=== PATIENT | female | born 1945 | race Caucasian/White ===

== ENCOUNTER 2019-08-07 14:00 | Outpatient (CLI) | payer OTHER, SELFPAY ==
--- NOTE | ~2019-08-07 | DEXA_ITS ---
BMD(1) Young-Adult(2) Region (g/cm2) T-score WHO Classification L1 0.924 -1.8 Osteopenia L2 1.033 -1.5 Osteopenia L3 1.194 -0.2 Normal L4 1.418 1.6 Normal L1-L4 1.177 -0.1 Normal L2-L4 1.242 0.2 Normal Trend: L2-L4 Change vs Change vs Measured Age BMD(1) Baseline Previous Date ([age]) (g/cm2) (%) (%) 08/07/2019 [age] 1.242 19.5* 6.0* 12[age]11/2016 [age] 1.172 12.8* 12.2* 06[age]27/2012 66.6 1.045 0.6 0.6 04[birth year]15/2010 [age] 1.039 baseline - * - Indicates significant change based on 95% confidence interval. 1 - Statistically 68% of repeat scans fall within 1SD (+- 0.010 g/cm2 for AP Spine L2-L4) 2 - [place] (Combined NHANES (ages 20-30) / [place] (ages 20-40)) AP Spine Reference Population (v112) 11 - World Health Organization - Definition of Osteoporosis and Osteopenia for Women: Normal = T-score at or above -1.0 SD; Osteopenia = T-score between -1.0 and -2.5 SD; Osteoporosis = T-score at or below -2.5 SD; (WHO definitions only apply when a young healthy Women reference database is used to determine T-scores.) Printed: 08/07/2019 2:52:59 PM (13.60)76:3.00:50.00:12.0 0.00:10.56 0.60x1.05 25.5:%Fat=42.5% 0.00:0.00 0.00:0.00 Filename: [id number] Scan Mode: Standard;OneScan 37.0 [employer] [id number] BMD(1) Young-Adult(2,7) Region (g/cm2) T-score WHO Classification Neck Left 0.863 -1.3 Osteopenia Right 0.927 -0.8 Normal Mean 0.895 -1.0 Normal Difference 0.064 0.5 - Total Left 0.863 -1.1 Osteopenia Right 0.825 -1.5 Osteopenia Mean 0.844 -1.3 Osteopenia Difference 0.038 -0.3 - Hip Sprague Length Comparison (mm) JAQUELINE chart results unavailable Trend: Total Mean Change vs Change vs Measured Age BMD(1) Baseline Previous Date ([age]) (g/cm2) (%) (%) 08[birth year]07/2019 73.7 0.844 8.8* 9.8* [birth year]27/2012 66.6 0.769 -0.9 -0.9 04/15/2010 64.4 0.776 baseline - * - Indicates significant change based on 95% confidence interval. 1 - Statistically 68% of repeat scans fall within 1SD (+- 0.010 g/cm2 for DualFemur Total) 2 - [place] (Combined NHANES (ages 20-30) / [place] (ages 20-40)) Femur Reference Population (v112) 7 - DualFemur Total T-score difference is 0.3. Asymmetry is None. 11 - World Health Organization - Definition of Osteoporosis and Osteopenia for Women: Normal = T-score at or above -1.0 SD; Osteopenia = T-score between -1.0 and -2.5 SD; Osteoporosis = T-score at or below -2.5 SD; (WHO definitions only apply when a young healthy Women reference database is used to determine T-scores.) Printed: 08/07/2019 2:53:00 PM (13.60); Filename: [id number]; Right Femur; 19.7:%Fat=42.5%; Neck Angle (deg)= 59; Scan Mode: Standard 37.0 uGy; Left Femur; 20.0:%Fat=35.0%; Neck Angle (deg)= 60; Scan Mode: Standard 37.0 uGy [facility] [id number] Dear Kristie Ashley, Your patient Margot Gipson completed a BMD test on 08/07/2019 using the [facility] DXA System (analysis version: 13.60) manufactured by [employer]. The following summarizes the results of our evaluation. PATIENT BIOGRAPHICAL: Name: Margot Gipson Date: 1945 Height: 69.0 in.
--- NOTE | ~2019-08-07 | MM_ITS ---
EXAMINATION: MM screening [facility] BI w naomy HISTORY: Screening mammogram TECHNIQUE: Craniocaudal and mediolateral oblique 3-D tomosynthesis images were obtained and synthetic 2-D images were generated. CAD analysis was submitted and interpreted. COMPARISON: 07/25/2018, 12/10/2016, 06/22/2012 BREAST PARENCHYMAL COMPOSITION: The breasts are heterogeneously dense, which may obscure small masses . FINDINGS: There is no evidence of suspicious mass, calcification, or architectural distortion to sugg est malignancy in either breast. There has been no suspicious interval change. IMPRESSION: 1. No mammographic evidence of malignancy. 2. Recommend routine screening mammography in one year. BI-RADS Category 1: Negative Reviewed, dictated and finalized at location A.
== END 2019-08-07 14:01 | disposition home or self-care (01) ==
LOC: CHSIMG 14:01
PROVIDERS: PCP Internal Medicine; Visit Provider Nurse Practitioner Family
DX: Z12.31 Encounter for screening mammogram for malignant neoplasm of breast (principal); M85.80 Other specified disorders of bone density and structure, unspecified site; Z78.0 Asymptomatic menopausal state
CPT/HCPCS: 77063; 77067; 77080

== ENCOUNTER 2020-02-01 14:34 | Emergency (ER) | payer MEDICARE, SELFPAY ==
--- NOTE | ~2020-02-01 | CT_ITS ---
EXAMINATION: CT abdomen pelvis w con DATE: 02/01/2020 16:46 INDICATION: Low abdominal pain. TECHNIQUE: Computed tomography (CT) of the abdomen and pelvis was performed with 100 mL Omnipaque 350 intravenous contrast. Automated exposure control and iterative reconstruction technique were employe d. The dose-length product was 985.57 mGy-cm. COMPARISON: Chest CT 07/25/2018 FINDINGS: The visualized portions of the lung bases demonstrate mild atelectasis. No pleural effusion . The heart size is normal. There are coronary artery calcifications. No pericardial effusion. There is a moderate-sized sliding hiatal hernia. The liver and gallbladder are normal. Calcifications in th e spleen are consistent with old granulomatous disease. The pancreas and left adrenal gland are beto l. There is a 10 mm mass in right adrenal gland without change in size, consistent with an adenoma. T he kidneys are normal. There are scattered diverticula in the colon. The appendix is dilated to 12 mm with irregularity of the inferior wall, consistent with appendicitis. There is gas in the lumen of t he appendix. There is a small volume of ascites and free gas in the pelvis. There is wall thickening of the terminal ileum, consistent with secondary inflammation. There are no pathologically enlarged l ymph nodes. There is a right femoral hernia containing fat and ascites. There is severe thoracic spon dylosis and moderate lumbar spondylosis. IMPRESSION: 1. Ruptured acute appendicitis. 2. Moderate-sized sliding hiatal hernia. 3. Right femoral hernia containing fat and ascites. Reviewed, dictated and finalized at location A.
[2020-02-01 15:00] VITALS: BP 128/74; PULSE 78; RESP 20; TEMP 37; O2SAT 96
--- NOTE | 2020-02-01 15:22 | ECG_ITS ---
Measurements Intervals [place] Rate: 73 P: 66 MD: 164 QRS: 16 QRSD: 101 T: 36 QT: 397 QTc: 439 Interpretive Statements SINUS RHYTHM INCOMPLETE RIGHT BUNDLE BRANCH BLOCK BORDERLINE ST-T WAVE ABNORMALITY- ANTEROLAT/HIGH LAT LEADS BORDERLINE ECG Electronically Signed On 02-01-2020 16:38:28 CDT by Jeff Zelaya D.O.
[2020-02-01] MEDS: SODIUM CHLORIDE 0.9% IV 1,000 ML 999 ML IV CONT (15:35)
[2020-02-01] MEDS: KETOROLAC 30 MG/ML VIAL (*BKC) IV PUSH (15:37)
[2020-02-01 15:38] LABS: Basophils Absolute Auto 0.02 K/mm3 (0.00-0.10); Basophils Percent Auto 0.1 % (0.0-1.0); Hematocrit 37.2 % (35.0-42.0); Hemoglobin 12.4 g/dL (11.7-13.8); Immature Granulocyte Absolute 0.17 K/mm3 (0.00-0.00); Immature Granulocyte Percent A 1.1 % (0.0-0.0); Lymphocytes Absolute Auto 1.35 K/mm3 (1.10-4.50); Lymphocytes Percent Auto 8.9 % (18.0-42.0); Mean Corpuscular HGB Conc 33.3 g/dL (32.0-36.0); Mean Corpuscular Hemoglobin 32.5 pg (27.0-31.0); Mean Corpuscular Volume 97.4 fL (78.0-102.0); Mean Platelet Volume 10.9 fl (9.2-11.8); Monocytes Absolute Auto 0.64 K/mm3 (0.10-0.90); Monocytes Percent Auto 4.2 % (2.0-11.0); Neutrophils Absolute Auto 12.9 K/mm3 (1.7-7.2); Neutrophils Percent Auto 85.7 % (50.0-70.0); Platelet Count Result 205 K/mm3 (150-420); Red Blood Count 3.82 M/mm3 (4.20-5.40); White Blood Count 15.1 K/mm3 (4.8-10.8)
[2020-02-01] MEDS: ONDANSETRON INJ 4 MG/2 ML VIAL IV PUSH (15:38)
[2020-02-01 15:57] LABS: Alkaline Phosphatase 96 U/L (46-116); Anion Gap 7 mmol/L (8-16); Aspartate Amino Transferase 10 U/L (15-37); Bilirubin,Total 3.4 mg/dL (0.00-1.00); Blood Urea Nitrogen 11 mg/dL (7-18); Calcium 8.9 mg/dL (8.5-10.1); Carbon Dioxide 28 mmol/L (21-32); Chloride 100 mmol/L (98-108); Estimated CRCL calculation 47 ml/min; Estimated Glomerular Filt Rate > 60; Glucose 136 mg/dL (70-99); Lipase 34 U/L (73-393); Osmolality Calculated 281 mOsm/kg (285-295); Potassium 3.6 mmol/L (3.5-5.1); Sodium 135 mmol/L (136-145)
[2020-02-01 15:58] LABS: Alanine Aminotransferase < 6 U/L (14-59); Troponin I < 0.02 ng/mL (0.00-0.056)
[2020-02-01 15:59] LABS: Lactic Acid Reflex 1.8 mmol/L (0.4-2.0)
[2020-02-01 16:55] LABS: Add Urine Microscopic? YES; Appearance Urine Clear (Clear); Bilirubin Urine Negative (Negative); Blood Urine Negative (Negative); Color Urine Amber (Yellow); Glucose Urine UA Negative (Negative); Ketones Urine Trace (Negative); Leukocyte Esterase Ur Negative LEU/UL (Negative); Nitrate Urine Positive (Negative); Protein Urine 1+ (Negative); Specific Grav Ur 1.025 (1.010-1.020)
[2020-02-01 17:00] LABS: Bacteria Urine 4+ /hpf; RBC Urine 0-2 /hpf (0-2); Squamous Epithelial Cell Urine Few /hpf (Few); WBC Urine 0-3 /hpf (0-3)
--- NOTE | 2020-02-01 17:09 | ED.ABDPAIN ---
HPI - Abdominal Pain General Chief Complaint: Abdominal Pain Stated Complaint: Abdomen Pian Source: patient and family History of Present Illness HPI narrative: this is a 74-year-old female that presents to the emergency department with a 2 day history of abdominal pain initially she described it is diffuse currently localized to her right lower quadrant with no flank pain, no fever or chills. Patient has been having pain for the last 2 days with episodes of constipation, there is currently nausea with no vomiting patient is afebrile. Patient has a past medical history of hypertension, hypothyroidism/depression. MD elicited complaint: abdominal pain Pertinent past history: none Onset (ago): day(s) Pain Consistency: constant Location: RLQ Severity: severe Quality: sharp Radiation: RLQ Migration to: periumbilical Exacerbating factors: bowel movement and movement Relieving factors: nothing Associated symptoms: nausea and constipation Related Data Home Medications Medication Instructions Recorded Confirmed atenolol 25 mg PO HS 02/01/20 02/01/20 cyanocobalamin (vitamin B-12) 1,000 mcg SUBCUT MONTHLY 02/01/20 02/01/20 ferrous gluconate 324 mg PO DAILY 02/01/20 02/01/20 levothyroxine 100 mcg PO DAILY 02/01/20 02/01/20 paroxetine HCl 20 mg PO DAILY 02/01/20 02/01/20 Allergies Allergy/AdvReac Type Severity Reaction Status Date / Time codeine Allergy Unknown Verified 02/01/20 15:06 Review of Systems Review of Systems: All systems reviewed & are unremarkable except as noted in HPI and below PMFSH Past Medical History Medical History Depression HTN (hypertension) Hypothyroidism (acquired) Exam Const: General: no acute distress Orientation/consciousness: patient oriented x3 HENMT: Head: normal to inspection Eyes: Conjunctivae: conjunctivae normal Pupils: Equal, round and reactive pupils present EOM: EOMs intact bilaterally Neck: Neck: normal visual inspection, no lymphadenopathy and no meningeal signs Chest: Chest palpation & inspection: normal inspection of the chest Resp: Effort & Inspection: normal respiratory effort Auscultation: clear to auscultation bilaterally Cardio: Rate: regular rate Rhythm: regular rhythm GI: GI Palp: Yes Tenderness to palpation present (GI), Yes Guarding due to palpation present (GI) and Yes Rebound tenderness present Auscultation: Hypoactive bowel sounds present : General: Yes CVA tenderness Skin: General skin exam: normal color Rashes: no rashes Neuro: General: patient oriented x3, moves all extremities, no meningeal signs and no focal motor deficits Extrem: General: normal to inspection Psych: Appearance: grossly normal Mental Status: mental status grossly normal Affect: normal affect Thought content: Yes Normal thought content present Course Course Emergency Course: reassessment of patient her abdominal pain has some subsided somewhat with Toradol, informed patient of CT findings that she has a ruptured appendix and patient and agreed to transfer to [facility] for further evaluation. Spoke with surgery at [facility] which will accept the patient, spoke with Dr. Miguel. Vital Signs Vital signs: Vital Signs Temperature 37.0 C 02/01/20 15:00 Pulse Rate 78 02/01/20 15:00 Respiratory Rate 02/01/20 15:00 Blood Pressure 128/74 02/01/20 15:00 Pulse Oximetry 96 02/01/20 15:00 Temperature 37.0 C 02/01/20 15:00 Pulse Rate 78 02/01/20 15:00 Respiratory Rate 02/01/20 15:00 Blood Pressure 128/74 02/01/20 15:00 Pulse Oximetry 96 02/01/20 15:00 MDM - Abdominal Pain Lab Data Result diagrams: 02/01/20 15:30 02/01/20 15:30 Labs: Lab Results 02/01/20 02/01/20 02/01/20 Range/Units 15:30 15:30 15:30 WBC 15.1 H (4.8-10.8) K/mm3 RBC 3.82 L (4.20-5.40) M/mm3 Hgb 12.4 (11.7-13.8) g/dL Hct 37.2 (3
--- NOTE | 2020-02-01 17:34 | PC.NURSE ---
1705 [employer]KA [employer] ADMIN CONTACTED FOR TRANSFER. AWAITING CALL BACK FOR CERAMIST SURGEON. [address]26 DR[address] FERNANDES CALLED BACK, SPOKE WITH ERP AND ACCEPTED PT TRANSFER TO [facility] 1734 RN CONTACTED AMBIKA ESTEVEZ SUPERVISOR AGAIN TO REQUEST A BED ASSIGNMENT FOR TRANSFER. AWAITING CALL BACK.
--- NOTE | 2020-02-01 17:46 | PC.NURSE ---
3611 AMBIKA FINISHED [employer]AR MAKER ZENAIDA CONTACTED RN TO PROVIDE ROOM ASSIGNMENT 344 AND TELEPHONE NUMBER FOR NURSE-NURSE REPORT
[2020-02-01 18:30] VITALS: BP 105/52; PULSE 72; RESP 20; TEMP 36.6; O2SAT 95
== END 2020-02-01 18:30 | disposition short-term general hospital (02) ==
PROVIDERS: Emergency Provider Emergency Medicine; PCP Internal Medicine
DX: K35.32 Acute appendicitis with perforation, localized peritonitis, and gangrene, without abscess (principal); I10 Essential (primary) hypertension; E03.9 Hypothyroidism, unspecified; F32.9 Major depressive disorder, single episode, unspecified
CPT/HCPCS: 36415; 74177; 80053; 81001; 83605; 83690; 84484; 85025; 87086; 87088; 93005; 96361; 96365; 96375; 99284; 99285; J1885; J2405; J2543; J7030; Q9965

== ENCOUNTER 2020-02-01 19:10 | Inpatient (IN) | payer MEDICARE, SELFPAY ==
--- NOTE | 2020-02-01 19:28 | PC.NURSE ---
Call placed to surgery exchange for Dr. Gil to call in regards to vital signs.
[2020-02-01 19:35] VITALS: BP 105/85; PULSE 68; RESP 16; TEMP 36.7; O2SAT 98
--- NOTE | 2020-02-01 21:07 | PC.NURSE ---
This patient, Margot Gipson, was admitted to Medical Room 344-01. Patient/family oriented to hospital policies and general routines including ID bracelet, bed and alarms, visiting hours, pain management, procedures, bathroom and other care routines, personal items, smoking policy, room service/diet, and visiting hours. Valuables list has been completed. Information on how to activate the Rapid Response Team has been discussed. Patient/Family are encouraged to report perceived risks to care and to ask questions if they do not understand what they are told or what they should do.
[2020-02-01 21:23] VITALS: BMI 24.5
[2020-02-02] VITALS (13 sets, daily range): BP systolic 96–126; BP diastolic 48–66; PULSE 60–83; RESP 12–20; TEMP 36.3–36.8; O2SAT 93–100; BMI 24.5
[2020-02-02] MEDS: ONDANSETRON INJ 4 MG/2 ML VIAL IV PUSH (04:06)
[2020-02-02 06:52] LABS: Hemoglobin 12.3 g/dL (12.0-15.0); Mean Corpuscular HGB Conc 34.2 g/dl (32-36); Mean Corpuscular Volume 93.8 fl (80-100); Mean Platelet Volume 11.3 fl (7.4-10.4); Platelet Count Result 193 k/mm3 (150-375); Red Blood Count 3.84 M/mm3 (4.2-5.4); Red Cell Distribution Width 11.9 % (11.5-14.5); White Blood Count 12.8 K/mm3 (4.5-10.0)
[2020-02-02 07:08] LABS: Anion Gap 7 mmol/L (8-16); Blood Urea Nitrogen 15 mg/dL (7-17); Calcium 8.9 mg/dL (8.4-10.2); Carbon Dioxide 27 mmol/L (22-30); Chloride 101 mmol/L (98-107); Estimated CRCL calculation 66 ml/min; Estimated Glomerular Filt Rate > 60; Glucose 127 mg/dL (65-105); Potassium 3.4 mmol/L (3.4-5.0); Sodium 135 mmol/L (137-145)
[2020-02-02] MEDS: PANTOPRAZOLE SODIUM IV 40 MG VIAL IV PUSH (07:59)
--- NOTE | 2020-02-02 09:51 | PM.IMHP ---
H&P: HPI History of Present Illness Date/Time: 02/02/20 09:51 Chief complaint: Ruptured appendix Narrative: Margot Gipson is a 74 year old female presenting to ED c/o 2-3 day h/o progressively worsening lower abd pain, now localized to RLQ. Pt reports pain is now constant and severe. Pt reports assoc decreased appetite, nausea, general malaise. Pt denies any previous episodes. Pt denies any f/c. Review of Systems Constitutional: Constitutional: Reports body ache(s), Denies chills, Reports fatigue, Reports lethargy and Reports weakness Eyes: Eyes: Reports no additional eye complaints ENT: Reports Normal hearing present and Denies dysphagia Cardiovascular: Cardiovascular: Denies chest pain and Denies palpitations Respiratory: Respiratory: Denies no additional respiratory complaints, Denies dyspnea and Denies dyspnea on exertion Gastrointestinal: Gastrointestinal: Reports abdominal pain, Reports bloating, Denies constipation, Denies heartburn, Denies diarrhea, Reports nausea and Denies vomiting Genitourinary: Genitourinary: Denies hematuria and Denies dysuria Musculoskeletal: Musculoskeletal: Reports no additional musculoskeletal complaints Integumentary/Breasts: Skin/Breast: Reports system reviewed and no additional complaints, except as docu Neurologic: Reports system reviewed and no additional complaints, except as documented Psychiatric: Psychiatric: Reports no additional psychiatric complaints PMFSH Past Medical History Medical History Depression HTN (hypertension) Hypothyroidism (acquired) Social History Social History Smoking packs per day: 2.5 Smoking cigarettes per day: 50.0 Years smoked: 40 Smoking pack-years: 100.00 Smoking status: Former smoker Tobacco type: cigarettes Second hand tobacco smoke exposure: No Alcohol intake: never Substance use: never Substance use type: does not use Gender identity (if verbalized by the patient): Female Spiritual care concerns: No Meds Home Medications and Allergies Home Medications Medication Instructions Recorded Confirmed Type atenolol 25 mg PO HS 02/01/20 02/01/20 History cyanocobalamin (vitamin B-12) 1,000 mcg SUBCUT MONTHLY 02/01/20 02/01/20 History ferrous gluconate 324 mg PO DAILY 02/01/20 02/01/20 History levothyroxine 100 mcg PO DAILY 02/01/20 02/01/20 History paroxetine HCl 20 mg PO DAILY 02/01/20 02/01/20 History Allergies Allergy/AdvReac Type Severity Reaction Status Date / Time codeine Allergy Unknown Verified 02/01/20 15:06 Vital Signs Vital Signs - 24 hr 02/01/20 19:35 02/02/20 04:25 02/02/20 08:00 Temperature 36.7 C 36.7 C 36.5 C Pulse Rate 68 70 70 Respiratory Rate 16 16 18 Blood Pressure 105/85 96/53 L 110/58 L Pulse Oximetry 98 95 96 Exam Const: General: in distress mild and uncomfortable HENMT: Mouth: Yes moist mucous membranes Eyes: General: appearance normal, both eyes and all related structures Sclera: sclerae normal Pupils: Equal, round and reactive pupils present EOM: EOMs intact bilaterally Neck: Neck: supple and no JVD Lymphatic: lymphadenopathy not noted Resp: Effort & Inspection: normal respiratory effort Auscultation: clear to auscultation bilaterally Cardio: Rate: regular rate Rhythm: regular rhythm GI: Inspection: distended GI Palp: Yes Soft to palpation, Yes Firmness to palpation present (GI), Yes Tenderness to palpation present (GI), Yes Guarding due to palpation present (GI) and No Hernia present Other: soft, mod dist, focal TTP RLQ, vol guarding Skin: General skin exam: normal color and no rashes or lesions noted Neuro: Speech: normal speech Motor exam (neuro): 5/5 motor strength present throughout Extrem: General: normal to inspection Psych: Mental Status: mental status grossly normal H&P: Results Labs Labs: Short CBC 02/02/20 Range
--- NOTE | 2020-02-02 11:54 | PCNSR ---
On 02/02/20, the student,Yon Troy, provided care and completed [facility] documentation on this patient. I have reviewed the student's documentation and agree with the findings.
[2020-02-02] MEDS: LACTATED RINGERS 1,000 ML 30 ML IV CONT (13:08)
--- NOTE | 2020-02-02 13:08 | WPDANESEPPF ---
Anes - Initial Pre Proc Eval Procedure: Operation Date: 02/02/20 14:15 Proposed Procedures p Laparoscopic Appendectomy - Lesa Gil MD Date/Time: 02/02/20 13:08 Surgeon: Lesa Gil MD Pre Op Diagnosis: Ruptured appendix Patient Data Age: 74 Gender: F Height: 5 ft 10 in Weight: 77.4 kg Last Vital Signs Temp 36.5 C 02/02/20 08:00 Pulse 70 02/02/20 08:00 Resp 18 02/02/20 08:00 BP 110/58 L 02/02/20 08:00 Pulse Ox 96 02/02/20 08:00 Allergies Allergy/AdvReac Type Severity Reaction Status Date / Time codeine Allergy Unknown Verified 02/01/20 15:06 Home Medications Medication Instructions Recorded Confirmed Type atenolol 25 mg PO HS 02/01/20 02/01/20 History cyanocobalamin (vitamin B-12) 1,000 mcg SUBCUT MONTHLY 02/01/20 02/01/20 History ferrous gluconate 324 mg PO DAILY 02/01/20 02/01/20 History levothyroxine 100 mcg PO DAILY 02/01/20 02/01/20 History paroxetine HCl 20 mg PO DAILY 02/01/20 02/01/20 History Laboratory Tests 02/02/20 02/02/20 05:55 05:55 WBC 12.8 K/mm3 H K/mm3 (4.5-10.0) RBC 3.84 M/mm3 L M/mm3 (4.2-5.4) Hgb 12.3 g/dL g/dL (12.0-15.0) Hct 36.0 % L % (37.0-47.0) MCV 93.8 fl fl (80-100) MCH 32.0 pg pg (26-34) MCHC 34.2 g/dl g/dl (32-36) RDW 11.9 % % (11.5-14.5) Plt Count 193 k/mm3 k/mm3 (150-375) MPV 11.3 fl H fl (7.4-10.4) Sodium 135 mmol/L L mmol/L (137-145) Potassium 3.4 mmol/L mmol/L (3.4-5.0) Chloride 101 mmol/L mmol/L (98-107) Carbon Dioxide 27 mmol/L mmol/L (22-30) Anion Gap 7 mmol/L L mmol/L (8-16) BUN 15 mg/dL mg/dL (7-17) Creatinine 0.70 mg/dL mg/dL (0.7-1.0) Estim Creat Clear Calc 66 ml/min ml/min Estimated GFR > 60 (59 - ) Glucose 127 mg/dL H mg/dL (65-105) Calcium 8.9 mg/dL mg/dL (8.4-10.2) Patient hx anesthesia problems: none Family hx anesthesia problems: none PMFSH Past Medical History Medical History Atrial flutter Depression HTN (hypertension) Hypothyroidism (acquired) TIA (transient ischemic attack) Social History Social History Smoking packs per day: 2.5 Smoking cigarettes per day: 50.0 Years smoked: 40 Smoking pack-years: 100.00 Smoking status: Former smoker Tobacco type: cigarettes Second hand tobacco smoke exposure: No Alcohol intake: never Substance use: never Substance use type: does not use Gender identity (if verbalized by the patient): Female Spiritual care concerns: No Anes - Eval Final PreProcedure Day of Procedure 02/02/20 13:08 Patient weight: normal Heart: regular rate and rhythm Lungs: decreased breath sounds Airway: Mallampati scale class II Neurological: alert and oriented Last oral intake: >/= 8 hours ASA classification: III Emergent: yes Anesthetic plan: proceed Anesthesia type and monitoring: general ETT and standard monitoring Informed Consent: The patient's anesthetic plan and its attendant risks and benefits were discussed with the patient/family/POA. Questions were solicited and answers provided to the satisfaction of the patient/family/POA.
[2020-02-02] MEDS: BUPIVACAINE/EPINEPHRINE 0.5% 30 ML VIAL INFILTRATE (13:59)
--- NOTE | 2020-02-02 14:26 | P.OP_ITS ---
Procedure Note - Detailed Date of procedure: 02/02/20 Pre-op diagnosis: Ruptured appendix Post-op diagnosis: same Procedure performed: Laparoscopic appendectomy Description of procedure: The patient was brought into the operating room placed in the supine position. After adequate induction of general anesthesia, the patient was prepped and draped in normal sterile fashion. A time-out was then done to verify the patient's identity as well as the procedure being performed. I began by making a 5 mm incision in the infraumbilical region. A 5 mm Optiview trocar within used to gain access into the peritoneal cavity. Once into the peritoneal cavity, CO2 gas was insufflated. After adequate pneumoperitoneum was achieved, the laparoscope was placed into the 5 mm trocar. Under direct visualization, I went ahead and placed a further 5 mm suprapubic port as well as a 12 mm port in the left lower abdomen. At this point, I was able to visualize cecum, as well as the terminal ileum which was very inflammed and dilated. Both these structures were noted in the right pelvis. There was also a fair amount of purulent fluid noted in the right pelvis and right pericolic gutter. I went ahead and suctioned and washed out this area. Of note, no organized abscess was noted. The cecum was retracted both cephalad and medial, and this allowed us to expose the appendix. The appendix was noted to be ruptured and upon manipulation the back wall was largely necrotic. I then grasped the appendix near the tip of the appendix and retracted both anterior and lateral. This allowed exposure of the base of the appendix with the cecum. Given the amount of inflammation and friability, the mesoappendix had been largely obilterated. I transected the base of the appendix with a blue staple load. Once the appendiceal specimen was completely detached, a Endo pouch was placed through the 12 mm port site. The appendix was placed into the Endo pouch and removed through the 12 mm port site. The appendix will now be sent to pathology for sury ugalde review. I then visualized the right lower quadrant, the staple line were noted to be intact and hemostatic. No other pathology was noted in the right lower quadrant or pelvis. I then did another washout. I placed a 15 round drain in the RLQ bringing this out through the suprapubic incision. I then moved the laparoscope to the 12 mm suprapubic port. I then visualized our port of entry at the 5 mm infraumbilical site. No iatrogenic injury or other pathology was seen in the upper abdomen. I then desufflated the abdomen and all ports were removed. The fascia of the 12 mm port site was closed with an 0 Vicryl figure of 8 suture. All port sites were then closed with 4 O Monocryl subcuticular suture. The patient tolerated the procedure well and was extubated in the operating room postoperatively. The patient will be transferred to the recovery room in stable condition. Anesthesia: GETA Surgeon: Lesa Gil MD Estimated blood loss (mL): 10 Drains: Yes Packing: No Pathology: yes Complications: No immediate complications Condition: stable Disposition: PACU Findings: Acute ruptured appendicitis
--- NOTE | 2020-02-02 15:23 | PC.NURSE ---
Returned from OR.
[2020-02-02] MEDS: atenoloL 25 MG TABLET PO (20:28)
[2020-02-03 04:00] VITALS: BP 118/65; PULSE 54; RESP 20; TEMP 36.2; O2SAT 95
[2020-02-03] MEDS: LEVOTHYROXINE SODIUM 100 MCG TABLET PO (05:37)
[2020-02-03 06:21] LABS: Hematocrit 34.2 % (37.0-47.0); Hemoglobin 11.6 g/dL (12.0-15.0); Mean Corpuscular HGB Conc 33.9 g/dl (32-36); Mean Corpuscular Hemoglobin 31.7 pg (26-34); Mean Corpuscular Volume 93.4 fl (80-100); Mean Platelet Volume 11.1 fl (7.4-10.4); Platelet Count Result 212 k/mm3 (150-375); Red Blood Count 3.66 M/mm3 (4.2-5.4); Red Cell Distribution Width 11.8 % (11.5-14.5); White Blood Count 12.8 K/mm3 (4.5-10.0)
[2020-02-03 06:33] LABS: Anion Gap 4 mmol/L (8-16); Blood Urea Nitrogen 12 mg/dL (7-17); Calcium 8.6 mg/dL (8.4-10.2); Carbon Dioxide 29 mmol/L (22-30); Chloride 103 mmol/L (98-107); Estimated CRCL calculation 76 ml/min; Estimated Glomerular Filt Rate > 60; Glucose 152 mg/dL (65-105); Potassium 3.4 mmol/L (3.4-5.0); Sodium 136 mmol/L (137-145)
--- NOTE | 2020-02-03 08:31 | PCNFU ---
Nutrition Follow-Up Complete: Inadequate oral intake related to poor appetite as evidenced by patient report and 2.2 kg weight loss in one week Goal: Patient to consume 75% or more of meals Patient is progressing towards goal. We will continue current goal. Pt current nutrition is clear liquids. Nutrition recommendation: advance as tolerated per MD orders. Last recorded weight is 77.4 kg. Bowel Motility: No BM reported at this time. Labs Reviewed:Na 136,Glu 152,Cr 0.6,Hct 34.2,Hgb 11.6 Meds Noted:Zocyn,Synthroid Additional Notes: Spoke with patient today for nutrition follow up. Patient states to tolerating clear liquids tray, she is also drinking the Ensure Clear which is providing 240 kcals and 8 gms protein on trays. Plans are to advance as tolerated to a heart healthy diet. 02/01-appendectomy. Monitoring: Follow up in 5 days
[2020-02-03] MEDS: DOCUSATE SODIUM 100 MG CAPSULE PO ×2 (08:58→20:18)
[2020-02-03] MEDS: PARoxetine 20 MG TABLET PO (08:58)
[2020-02-03] MEDS: FERROUS GLUCONATE 324 MG TABLET PO (08:58)
[2020-02-03] MEDS: PANTOPRAZOLE SODIUM IV 40 MG VIAL IV PUSH (08:58)
--- NOTE | 2020-02-03 09:40 | PM.PNGS ---
Progress Note: A&P Assessment and Plan (1) Ruptured appendicitis: Code(s): K35.32 - Acute appendicitis with perforation and localized peritonitis, without abscess Status: Acute Assessment and Plan: doing well, cont drain/abx, poss home tomorrow c po abx Subjective Subjective Date/Time Seen: 02/03/20 09:40 feels much better today, just some incisional pain Review of Systems Constitutional: Constitutional: Denies chills, Denies fatigue, Denies lethargy and Denies weakness Cardiovascular: Cardiovascular: Reports no additional cardiovascular complaints Respiratory: Respiratory: Reports no additional respiratory complaints Gastrointestinal: Gastrointestinal: Reports abdominal pain, Denies bloating, Denies constipation, Denies diarrhea, Denies nausea and Denies vomiting Exam Const: General: no acute distress Resp: Auscultation: clear to auscultation bilaterally Cardio: Rate: regular rate Rhythm: regular rhythm GI: Other: soft, sl dist, jarad TTP, incisions C/D/I, MICK c s/s drainage Objective Data Vital Signs Vital Signs: Vital Signs - 24 hr 02/02/20 13:08 02/02/20 14:27 02/02/20 14:35 Temperature 36.3 C L 36.4 C L Pulse Rate 63 74 79 Respiratory Rate 20 14 18 Blood Pressure 115/66 110/56 L 119/60 Pulse Oximetry 97 100 100 02/02/20 14:50 02/02/20 15:05 02/02/20 15:25 Temperature 36.3 C L Pulse Rate 83 78 74 Respiratory Rate 20 20 18 Blood Pressure 121/57 L 122/64 123/56 L Pulse Oximetry 100 97 94 02/02/20 15:40 02/02/20 16:10 02/02/20 17:10 Temperature 36.6 C 36.6 C 36.8 C Pulse Rate 69 60 65 Respiratory Rate 16 12 16 Blood Pressure 120/58 L 121/63 126/60 Pulse Oximetry 93 94 93 02/02/20 20:28 02/02/20 20:37 02/03/20 04:00 Temperature 36.8 C 36.2 C L Pulse Rate 62 66 54 L Respiratory Rate 18 20 Blood Pressure 114/48 L 118/65 Pulse Oximetry 95 95 Intake/Output Intake/Output: Intake & Output 01/31/20 02/01/20 02/02/20 02/03/20 23:59 23:59 23:59 23:59 Intake Total 150 670 250 Output Total 550 350 Balance 150 120 -100 Meds/Results Medications: Active Medications Generic Name Dose Route Start Last Admin Trade Name Freq PRN Reason Stop Dose Admin Atenolol 25 mg 02/02/20 21:00 02/02/20 20:28 Tenormin PO 25 mg HS TIFF Administration Diphenhydramine HCl 25 mg 02/01/20 20:04 Benadryl Inj IV PUSH Q4H PRN Itching Docusate Sodium 100 mg 02/02/20 21:00 02/03/20 08:58 Colace Capsule PO 100 mg Q12HR TIFF Administration Ferrous Gluconate 324 mg 02/03/20 09:00 02/03/20 08:58 Ferrous Gluconate PO 324 mg DAILY TIFF Administration Piperacillin/Tazobactam/Dextrose 3.375 gm in 50 mls @ 100 mls/hr 02/02/20 06:00 02/03/20 06:08 Zosyn 3.375 Gm/D5w 50ml Pm IVPB Infused Q6HR TIFF Infusion Levothyroxine Sodium 100 mcg 02/03/20 06:30 02/03/20 05:37 Synthroid PO 100 mcg DAILY@0630 TIFF Administration Morphine Sulfate 2 mg 02/01/20 20:09 Morphine Sulfate Inj IV PUSH Q4H PRN Pain Rated 7-10 Ondansetron HCl 4 mg 02/01/20 19:41 02/02/20 04:06 Zofran Inj IV PUSH 4 mg Q6H PRN Administration Nausea And Vomiting Pantoprazole Sodium 40 mg 02/02/20 09:00 02/03/20 08:58 Protonix Iv IV PUSH 40 mg QAM TIFF Administration Paroxetine HCl 20 mg 02/03/20 09:00 02/03/20 08:58 Paxil PO 20 mg DAILY TIFF Administration Labs Labs: Laboratory Results - last 24 hr 02/03/20 02/03/20 05:36 05:36 WBC 12.8 H RBC 3.66 L Hgb 11.6 L Hct 34.2 L MCV 93.4 MCH 31.7 MCHC 33.9 RDW 11.8 Plt Count 212 MPV 11.1 H Sodium 136 L Potassium 3.4 Chloride 103 Carbon Dioxide 29 Anion Gap 4 L BUN 12 Creatinine 0.60 L Estim Creat Clear Calc 76 Estimated GFR > 60 Glucose 152 H Calcium 8.6
[2020-02-03 14:00] VITALS: BP 119/49; PULSE 55; RESP 18; TEMP 36.9; O2SAT 98
--- NOTE | 2020-02-03 14:49 | WPDANESPN ---
Anes - Prog Note Post-Op Date/Time: 02/03/20 14:49 Cardiovascular status: normal Respiratory status: normal Airway patency: baseline Mental status: baseline Post-Op hydration status: normal Vital Signs: Last Vital Signs Temp 36.9 C 02/03/20 14:00 Pulse 55 L 02/03/20 14:00 Resp 18 02/03/20 14:00 BP 119/49 L 02/03/20 14:00 Pulse Ox 98 02/03/20 14:00 Pain Score (VAS): 5 I/O: Intake & Output 02/02/20 02/03/20 02/03/20 23:59 07:59 15:59 Intake Total 170 250 770 Output Total 70 350 425 Balance 100 -100 345 Laboratory Tests 02/03/20 05:36 02/03/20 05:36 02/03/20 02/03/20 05:36 05:36 WBC 12.8 H RBC 3.66 L Hgb 11.6 L Hct 34.2 L MCV 93.4 MCH 31.7 MCHC 33.9 RDW 11.8 Plt Count 212 MPV 11.1 H Sodium 136 L Potassium 3.4 Chloride 103 Carbon Dioxide 29 Anion Gap 4 L BUN 12 Creatinine 0.60 L Estim Creat Clear Calc 76 Estimated GFR > 60 Glucose 152 H Calcium 8.6 Post-procedural complaints: none Patient Feedback: Patient satisfied with anesthetic care.
[2020-02-03] MEDS: ACETAMINOPHEN 325 MG TABLET 650 MG PO (18:42)
[2020-02-03 20:16] VITALS: PULSE 62
[2020-02-03] MEDS: atenoloL 25 MG TABLET PO (20:16)
[2020-02-03 20:20] VITALS: BP 150/66; PULSE 56; RESP 20; TEMP 36.6; O2SAT 97
[2020-02-04 04:00] VITALS: BP 137/64; PULSE 58; RESP 20; TEMP 36.3; O2SAT 94
[2020-02-04] MEDS: LEVOTHYROXINE SODIUM 100 MCG TABLET PO (05:49)
[2020-02-04 05:58] LABS: Hematocrit 33.8 % (37.0-47.0); Hemoglobin 11.4 g/dL (12.0-15.0); Mean Corpuscular HGB Conc 33.7 g/dl (32-36); Mean Corpuscular Volume 94.9 fl (80-100); Mean Platelet Volume 10.8 fl (7.4-10.4); Platelet Count Result 251 k/mm3 (150-375); Red Blood Count 3.56 M/mm3 (4.2-5.4); Red Cell Distribution Width 11.9 % (11.5-14.5); White Blood Count 11.2 K/mm3 (4.5-10.0)
[2020-02-04 06:19] LABS: Anion Gap 5 mmol/L (8-16); Blood Urea Nitrogen 12 mg/dL (7-17); Carbon Dioxide 31 mmol/L (22-30); Chloride 102 mmol/L (98-107); Estimated CRCL calculation 66 ml/min; Estimated Glomerular Filt Rate > 60; Glucose 106 mg/dL (65-105); Potassium 3.5 mmol/L (3.4-5.0); Sodium 138 mmol/L (137-145)
[2020-02-04] MEDS: DOCUSATE SODIUM 100 MG CAPSULE PO (08:23)
[2020-02-04] MEDS: PANTOPRAZOLE SODIUM IV 40 MG VIAL IV PUSH (08:23)
[2020-02-04] MEDS: FERROUS GLUCONATE 324 MG TABLET PO (08:23)
[2020-02-04] MEDS: PARoxetine 20 MG TABLET PO (08:23)
[2020-02-04] MEDS: ONDANSETRON INJ 4 MG/2 ML VIAL IV PUSH (08:37)
--- NOTE | 2020-02-04 08:41 | PM.DS ---
DS: Admitting Diagnosis Admitting Diagnosis Admitting Diagnosis: Ruptured appendix DS: Discharge Diagnosis Discharge Diagnosis (1) Ruptured appendicitis: Code(s): K35.32 - Acute appendicitis with perforation and localized peritonitis, without abscess Status: Acute Assessment and Plan: s/p laparoscopic washout, cont drain, abx, f/u 1 wk for drain removal (2) HTN (hypertension): Code(s): I10 - Essential (primary) hypertension Status: Acute Assessment and Plan: stable, cont home meds (3) Hypothyroidism (acquired): Code(s): E03.9 - Hypothyroidism, unspecified Status: Acute Assessment and Plan: stable, cont home meds DS: Summary Time Spent with Patient Time attestation: Total time spent providing and/or coordinating discharge services: Exam Const: General: no acute distress Resp: Auscultation: clear to auscultation bilaterally Cardio: Rate: regular rate Rhythm: regular rhythm GI: Inspection: non-distended GI Palp: Yes Soft to palpation, Yes Tenderness to palpation present (GI) and No Guarding due to palpation present (GI) Other: soft, sl dist, jarad TTP, MICK c serous output, incisions C/D/I Skin: General skin exam: normal color and no rashes or lesions noted DS: Data Data Completed and Pending Pending studies at discharge: Pending at discharge 02/02/20 13:56 Surgical [PTH] Routine Labs on day of discharge: Labs from last 24 hours 02/04/20 02/04/20 05:41 05:41 WBC 11.2 H RBC 3.56 L Hgb 11.4 L Hct 33.8 L MCV 94.9 MCH 32.0 MCHC 33.7 RDW 11.9 Plt Count 251 MPV 10.8 H Sodium 138 Potassium 3.5 Chloride 102 Carbon Dioxide 31 H Anion Gap 5 L BUN 12 Creatinine 0.70 Estim Creat Clear Calc 66 Estimated GFR > 60 Glucose 106 H Calcium 9.0 Discharge Plan Discharge Attending physician on discharge: Lesa Gil Discharging Clinician: Lesa Gil Anticipated Discharge Date/Time: 02/04/20 08:39 Patient Disposition: Home, Self-Care Activity: may shower Diet: as tolerated Wound Care Instructions: follow printed instructions Discharge Instructions: DISCHARGE INSTRUCTION SHEET FOR HERNIA, GALLBLADDER AND APPENDIX SURGERIES DR. GIL PATIENT TO TAKE HOME 1. May shower in 24 hours, no soaking in bath x 2weeks. 2. Call office for: Wound increasingly painful or bleeding Vomiting Fever of greater than 101 degrees 3. If no bowel movement for three days, take 1 oz. (30 ml) Milk of Magnesia or MiraLax 17g 1 to 2 times daily. 4. No heavy lifting > 10-15 pounds x weeks for hernia repairs and 2 weeks for laparoscopic cholecystectomy or appendectomy. 5. No driving for 3 days or while taking narcotic pain medications. 6. Ice to surgical site for 48 hours (30 min on, then 30 min off). 7. Up walking 10-30 minutes three times per day. 8. Resume previous home medications. 9. Follow-up 10-14 days in office for wound check or as previously scheduled. ([id number]) 10. Oral pain medications prescription to be sent to pharmacy. Take Tylenol 500mg every 6 hours and Ibuprofen 600mg every 6 hours for the first 2 days, then as needed. 11. NUTRITION: Start out by drinking fluids and increase your diet as tolerated. If you experience nausea, try dry toast, crackers, and 7-UP. If nausea or vomiting persists, contact your surgeon?s office. 12. Gallbladders-Low Fat Diet for 2 weeks (send care note of low fat diet) 13. Inguinal Hernias-wear scrotal support for 48 hours 14. Abdominal Hernias-if sent home with abdominal binder, wear for the first 2 weeks (may remove to shower or at night to sleep).
--- NOTE | 2020-02-04 10:22 | PC.NURSE ---
Spoke with pt at length regarding MICK drain care. Pt instructed on how to empty, care for, record and report output to the physician. Pt verbalizes understanding. Pt sent with supplies for dressing change as well as a measurement cup. Pt also educated on being hyper aware of where drain is placed at all times. Pt informed the importance of not sitting on the drain bulb or tubing. Pt verbalizes understanding.
== END 2020-02-04 11:10 | disposition home or self-care (01) | DRG 340 ==
PROVIDERS: Admitting Provider Surgery; PCP Internal Medicine; Visit Provider Surgery
PROC: 0DTJ4ZZ Resection of Appendix, Percutaneous Endoscopic Approach (ICD-10-PCS; CPT 44970; principal; 2020-02-02 14:15)
DX: K35.32 Acute appendicitis with perforation, localized peritonitis, and gangrene, without abscess (principal); E03.9 Hypothyroidism, unspecified; F32.9 Major depressive disorder, single episode, unspecified; I10 Essential (primary) hypertension; Z79.899 Other long term (current) drug therapy; Z87.891 Personal history of nicotine dependence
CPT/HCPCS: 36415; 80048; 85027; 88304; A9270; C9113; J0131; J0330; J1100; J2250; J2405; J2543; J2704; J3010; J7030; J7120

== ENCOUNTER 2020-08-08 12:15 | Outpatient (CLI) | payer MEDICARE, SELFPAY ==
--- NOTE | ~2020-08-08 | MM_ITS ---
EXAMINATION: MM screening eliz BI w naomy HISTORY: Screening mammogram TECHNIQUE: Craniocaudal and mediolateral oblique 3-D tomosynthesis images were obtained and synthetic 2-D images were generated. CAD analysis was submitted and interpreted. COMPARISON: 08/03/2019, 07/25/2018, 12/10/2016 bilateral digital screening mammogram examinations BREAST PARENCHYMAL COMPOSITION: There are scattered areas of fibroglandular density. FINDINGS: Stable mild fibroglandular asymmetry. There is no evidence of suspicious mass, calcificatio n, or architectural distortion to suggest malignancy in either breast. There has been no suspicious i nterval change. IMPRESSION: 1. No mammographic evidence of malignancy. 2. Recommend routine screening mammography in one year. BI-RADS Category 2: Benign finding(s). Reviewed, dictated and finalized at location A. EM ENGINEER
== END 2020-08-08 12:16 | disposition home or self-care (01) ==
LOC: CHSIMG 12:18
PROVIDERS: PCP Internal Medicine; Visit Provider Internal Medicine
DX: Z12.31 Encounter for screening mammogram for malignant neoplasm of breast (principal)
CPT/HCPCS: 77063; 77067

== ENCOUNTER 2020-09-18 10:28 | Outpatient (CLI) | payer MEDICARE, SELFPAY ==
--- NOTE | ~2020-09-18 | CT_ITS ---
EXAMINATION:CT lung screening DATE: 09/18/2020 10:50 INDICATION: Personal history of tobacco dependence. Smoker who quit 6 years ago with 60 pack year his tory. TECHNIQUE: Computed tomography (CT) of the chest was performed without intravenous contrast. Automate d exposure control and iterative reconstruction technique were employed. The dose-length product (DLP ) was 80.74 mGy-cm. COMPARISON: Chest CT 07/25/2018 FINDINGS: There is stable scarring at the lung apices. There is mild atelectasis bilaterally. A calci fied right lung nodule and calcified right hilar and mediastinal lymph nodes are consistent with old granulomatous disease. No pleural effusion. Cardiomegaly is noted. There are coronary artery calcific ations. No pericardial effusion. There is ectasia of ascending aorta measuring 4.1 cm. There is a mod erate-sized sliding hiatal hernia. Calcifications in the spleen are consistent with old granulomatous disease. There is severe mid thoracic spondylosis. IMPRESSION: 1. Lung-RADS category 2: Benign appearance or behavior. Continue annual screening with noncontrast lo w-dose chest CT in 12 months. Reviewed, dictated and finalized at location B. IMPRESSION: 1. Lung-RADS category 2: Benign appearance or behavior. Continue annual screeni ng with noncontrast low-dose chest CT in 12 months.
== END 2020-09-18 10:29 | disposition home or self-care (01) ==
LOC: CHSIMG 10:29
PROVIDERS: PCP Internal Medicine; Visit Provider Internal Medicine
DX: Z12.2 Encounter for screening for malignant neoplasm of respiratory organs (principal); Z87.891 Personal history of nicotine dependence
CPT/HCPCS: 71271

== ENCOUNTER 2020-10-30 11:28 | Outpatient (CLI) | payer MEDICARE, SELFPAY | END 2020-10-30 11:29 | disposition home or self-care (01) | LOC: ANHAUDASC 11:29 | PROVIDERS: PCP Internal Medicine; Visit Provider Otolaryngology | DX: H90.3 Sensorineural hearing loss, bilateral (principal); H93.13 Tinnitus, bilateral | CPT/HCPCS: 92557; 92567 ==

== ENCOUNTER 2021-02-19 13:07 | Inpatient (IN) | payer MEDICARE, SELFPAY ==
[2021-02-19] VITALS (19 sets, daily range): BP systolic 113–159; BP diastolic 54–101; PULSE 46–60; RESP 15–22; TEMP 36.2–36.6; O2SAT 96–100; BMI 23.3
--- NOTE | ~2021-02-19 | XR_ITS ---
EXAMINATION: XR chest 2V EXAM DATE: 02/19/2021 13:38 INDICATION: A cardiac enzymes. Chest pain. TECHNIQUE: Frontal and lateral projections of the chest obtained and reviewed. Comparison is made to prior examination from 10/30/2013. FINDINGS: Probable moderate-sized gastroesophageal hiatal hernia. The lungs are hyperinflated which c an be seen with chronic obstructive pulmonary disease (a clinical diagnosis of functional impairment) , but is not diagnostic of it. Mild cardiomegaly. There are no pleural effusions. Biapical opacities consistent with scarring. Mild spondylosis and scoliosis. IMPRESSION: 1. Cardiomegaly. 2. Hyperinflation. 3. Hiatal hernia. Reviewed, dictated and finalized at location B.
--- NOTE | ~2021-02-19 | NM_ITS ---
EXAMINATION: NM faustino stress w perfusion DATE: 02/20/2021 16:03 INDICATION: Chest pain TECHNIQUE: Supine rest images were obtained following intravenous administration of 9.44 mCi Tc99m te trofosmin (Myoview). The patient was infused intravenously with Lexiscan (Regadenoson). Then, 87.5 mC i Tc99m tetrofosmin (Myoview) was administered intravenously, and supine stress images were obtained. Repeat stress images were also obtained in the prone position. Data was reconstructed into short axi s and horizontal and vertical long axis SPECT images. Gated SPECT images were also obtained. COMPARISON: None. FINDINGS: There is a small moderate severity reversible perfusion defect on both the prone and supine stress images at the mid inferior wall consistent with ischemia. No nonreversible infarct. There is normal left ventricular chamber size, wall motion and ejection fraction. Left ventricular ejection f raction measures 67%. IMPRESSION: 1. Small region of moderate reversible ischemia at the mid inferior segment. 2. Left ventricular ejection fraction measuring 67%. Reviewed, dictated and finalized at location A.
--- NOTE | ~2021-02-19 | CT_ITS ---
EXAMINATION: CTA chest PE protocol EXAM DATE: 02/19/2021 15:34 INDICATION: Chest pain, shortness of breath, elevated d dimer. TECHNIQUE: Spiral CTA of the chest (pulmonary arteries) was performed with 100 cc Omnipaque 350 intr avenous contrast injection. Images were acquired during the pulmonary arterial phase. Coronal maxi mum intensity projection 3D-reconstructions were created by the technologist on dedicated workstation . Axial, coronal and sagittal reformatted images were reviewed. The dose-length product (DLP) for t his examination was 331.96 mGy-cm. The exposure was tailored according to patient size (auto mA exp osure control), and iterative reconstruction (ASIR) was used as additional dose reduction technique. Comparison is made to prior examination from 09/18/2020. FINDINGS: Pulmonary arteries are well opacified and without intraluminal filling defects. No thora cic aortic dissection. There is biapical scarring. No acute airspace disease. Ascending aorta measur es 4.1 cm unchanged. Mild emphysema. There are no pleural or pericardial effusions. Tracheobronchia l tree is patent. There is no mediastinal, hilar or axillary lymphadenopathy. There is no pneumot horax. Mild cardiomegaly. There is mild to moderate coronary arterial calcification, arterial scle rosis. There is moderate sliding gastroesophageal hiatal hernia. There is thoracic spondylosis witho ut osteoblastic or osteolytic lesions identified. IMPRESSION: 1. Cardiomegaly. 2. Moderate hiatal hernia. 3. No acute cardiopulmonary findings. Reviewed, dictated and finalized at location B.
--- NOTE | 2021-02-19 13:24 | ECG_ITS ---
Measurements Intervals [place] Rate: 49 P: 95 [place]: 204 QRS: 15 QRSD: 90 T: 31 QT: 419 QTc: 382 Interpretive Statements SINUS BRADYCARDIA BORDERLINE AV CONDUCTION DELAY CANNOT RULE OUT SEPTAL INFARCT, AGE INDETERMINATE ST-T WAVE ABNORMALITY- IN ANTEROLATERAL LEADS- CONSIDER ISCHEMIA ABNORMAL ECG Electronically Signed On 02-19-2021 13:29:30 CDT by Jeff Zelaya D.O.
[2021-02-19 14:20] LABS: Basophils Percent Auto 0.3 % (0.2-1.2); Eosinophils Absolute Auto 0.1 K/mm3 (0-0.3); Eosinophils Percent Auto 1.5 % (0-4.4); Hematocrit 39.7 % (37.0-47.0); Hemoglobin 13.1 g/dL (12.0-15.0); Immature Granulocyte Absolute 0.02 K/mm3 (0.00-0.031); Immature Granulocyte Percent A 0.3 % (0-0.5); Lymphocytes Absolute Auto 2.33 K/mm3 (0.9-3.2); Lymphocytes Percent Auto 35.9 % (18.3-44.2); Mean Corpuscular Hemoglobin 32.9 pg (26-34); Mean Corpuscular Volume 99.7 fl (80-100); Mean Platelet Volume 9.9 fl (7.4-10.4); Monocytes Absolute Auto 0.4 K/mm3 (0.1-0.6); Monocytes Percent Auto 6.6 % (2.6-8.5); Neutrophils Absolute Auto 3.6 K/mm3 (1.3-6.7); Neutrophils Percent Auto 55.4 % (45.5-73.1); Platelet Count Result 167 k/mm3 (150-375); Red Blood Count 3.98 M/mm3 (4.2-5.4); Red Cell Distribution Width 12.4 % (11.5-14.5); White Blood Count 6.5 K/mm3 (4.5-10.0)
--- NOTE | 2021-02-19 14:30 | ED.CHESTPAIN ---
HPI - Chest Pain General Chief Complaint: Chest Pain Stated Complaint: abn labs Time Seen by Provider: 02/19/21 13:24 Source: patient, RN notes reviewed and old records reviewed Mode of arrival: ambulatory Limitations: no limitations History of Present Illness HPI narrative: This is a 75 year old female with history of hypertension who presents for evaluation of chest pain. Patient has been having intermittent midsternal chest pain for 2 weeks. She reports initial she has having pain that lasted minutes and it resolved with belching. She describes pain has pressure that intermittently radiates to her back and left shoulder. This past weekend she developed chest pain while she was mowing the grass. Her pain was constant as she was mowing. She denies cough, sob, nausea, vomiting or fever. She last felt chest pain yesterday afternoon. She was evaluated by her primary care physician yesterday with outpatient labs and an EKG. Her labs returned today with mildly elevated troponin so she was referred to ER. She denies history of heart disease. Related Data Home Medications Medication Instructions Recorded Confirmed atenolol 25 mg PO HS 02/01/20 10/16/20 cyanocobalamin (vitamin B-12) 1,000 mcg SUBCUT MONTHLY 02/01/20 02/15/20 ferrous gluconate 324 mg PO DAILY 02/01/20 02/15/20 levothyroxine 100 mcg PO DAILY 02/01/20 10/16/20 paroxetine HCl 20 mg PO DAILY 02/01/20 10/16/20 Allergies Allergy/AdvReac Type Severity Reaction Status Date / Time codeine AdvReac Unknown ALTERED Verified 10/16/20 09:31 MENTAL STATE Review of Systems Review of Systems: All systems reviewed & are unremarkable except as noted in HPI and below PMFSH Past Medical History Medical History (Updated 02/19/21 @ 16:25 by Birdie Cunningham MD) Atrial flutter Depression HTN (hypertension) Hypothyroidism (acquired) TIA (transient ischemic attack) Surgical History Surgical History S/P laparoscopic appendectomy 02/02/2020 Social History Social History Smoking packs per day: 2.5 Smoking cigarettes per day: 50.0 Years smoked: 40 Smoking pack-years: 100.00 Smoking status: Former smoker Tobacco type: cigarettes Second hand tobacco smoke exposure: No Alcohol intake: never Substance use: never Substance use type: does not use Gender identity (if verbalized by the patient): Female Spiritual care concerns: No Exam Const: General: no acute distress and alert Orientation/consciousness: patient oriented x3 Eyes: EOM: EOMs intact bilaterally Chest: Chest palpation & inspection: normal inspection of the chest Resp: Effort & Inspection: normal respiratory effort and no retractions Auscultation: clear to auscultation bilaterally Cardio: Rate: regular rate Rhythm: regular rhythm Heart sounds: no murmurs GI: GI Palp: Yes Soft to palpation, No Tenderness to palpation present (GI) and No Guarding due to palpation present (GI) Auscultation: normal bowel sounds Back/Spine/Pelvis: Back: no CVA tenderness Skin: General skin exam: normal color Rashes: no rashes Neuro: General: patient oriented x3, moves all extremities and CN's II-XI intact bilaterally Psych: Mental Status: mental status grossly normal Affect: normal affect Course Reevaluation(s) Reevaluation #1: I Discussed with patient plan to admit. She is agreeable. She has no chest pain. Will order aspirin Date: 02/19/21 Time: 16:23 Consultations Consultation #1: Ita accepts patient to IMU for observation. Date: 02/19/21 Time: 16:24 Consultation #2: I Spoke with Karla Rodriguez with heart care group and they will consult. Date: 02/19/21 Time: 16:52 Vital Signs Vital signs: Vital Signs Temperature 97.6 F 02/19/21 13:24 Pulse Rate 51 L 02/19/21 13:24 Respiratory Rate 17 02/19/21 13:24 Blood Pressure 121/62 02/19/21 13:24 Pulse
[2021-02-19 14:32] LABS: Anion Gap 6 mmol/L (8-16); Blood Urea Nitrogen 17 mg/dL (7-17); Calcium 9.4 mg/dL (8.4-10.2); Carbon Dioxide 30 mmol/L (22-30); Chloride 102 mmol/L (98-107); Estimated CRCL calculation 63 ml/min; Estimated Glomerular Filt Rate > 60; Glucose 89 mg/dL (65-110); Potassium 4.7 mmol/L (3.4-5.0); Sodium 138 mmol/L (137-145)
[2021-02-19 14:35] LABS: Prothrombin Time 13.1 Seconds (11.1-14.7)
[2021-02-19 14:36] LABS: Partial Thromboplastin Time 25.8 SECONDS (22.3-36.8)
[2021-02-19 14:41] LABS: D Dimer 0.57 ug/mL (<0.48)
[2021-02-19 14:51] LABS: Troponin I 0.036 ng/mL (0.000-0.034)
[2021-02-19] MEDS: ASPIRIN 81 MG CHEWABLE TABLET 324 MG PO (16:17)
--- NOTE | 2021-02-19 18:30 | PM.IMHP ---
H&P: HPI History of Present Illness Date/Time: 02/19/21 18:30 Chief Complaint: Chest pain. Narrative: This is a very pleasant 75-year-old female with history of palpitations, hypertension, hypothyroidism, and pernicious anemia who presented to the emergency department earlier today via private vehicle from home for evaluation of chest pain. For the last 2 weeks or so she has had intermittent midsternal chest pressure that will occasionally radiate through to the back and into her left arm. Initially she noticed it while doing activities in her backyard including pulling weeds and mowing. It does improve with rest however she goes on to say that she has had some episodes of the same discomfort that occur simply while sitting down watching television or working a crossword. Occasionally she has associated sweats and lightheadedness but not each time. With further questioning she does mention that she has been increasingly fatigued over the last couple of months which is unusual for her. She takes atenolol at home for what sounds like palpitations and a history of atrial flutter has been documented however she does not recall ever being told that and she has never been on anticoagulation. In any regard her troponins were very mildly elevated in the emergency department and her EKG showed possible ischemic changes in the anterior lateral leads without acute ST segment changes, and she is being admitted in this setting for cardiology consultation and closer monitoring. At the time of my evaluation she is having no chest pain whatsoever. She is bradycardic with a heart rate in the upper 40s and she states that it her baseline pulses usually right around 50. She has no known history of coronary artery disease and had a negative exercise stress test done a little over a decade ago. Of note she just found out that she had a hiatal hernia and she was started on pantoprazole. She is wondering if her symptoms may be related to that as occasionally the pressure is better after belching. Review of Systems Review of Systems: Twelve systems were reviewed with pertinent positives and negatives as per HPI. No fever, chills, or sweats. No recent cold or flu symptoms. No exposure to those positive for COVID 19 to her knowledge. She denies orthopnea and PND. She has frequent palpitations and that is why she was prescribed atenolol in the past. Her thyroid levels were checked relatively recently and she had no change in dosing. She denies significant GERD symptoms but does report that belching sometime seems to help the discomfort described in HPI. No blood noted in the stools. Except as documented, all other systems were reviewed and are negative. [facility] Past Medical History Medical History (Updated 02/20/21 @ 01:03 by Ita Mckenzie PA-C) Atrial flutter Poorly documented. Depression Hiatal hernia Hypertension Hypothyroidism Pernicious anemia Transient ischemic attack Surgical History Surgical History (Updated 02/20/21 @ 00:59 by Ita Mckenzie PA-C) History of breast biopsy History of cataract extraction History of hysterectomy for benign disease History of laparoscopic appendectomy (02/02/20) Family History Family History (Updated 02/20/21 @ 01:00 by Ita Mckenzie PA-C) Mother Sepsis Father Hepatocellular carcinoma Sibling Coronary artery disease Social History Social History (Updated 02/20/21 @ 01:01 by Ita Mckenzie PA-C) Social History: Surrogate decision maker: Daniel Gipson, spouse. Code status: Full code. Smoking packs per day: 2.5 Smoking cigarettes per day: 50.0 Years smoked: 49 Smoking pack-years: 122.50 Smoking status: Former smoker Tobacco type: cigarettes Second hand tobacco smoke exposure: No Alcohol intake: never Substance use: never Substance use type: does not use Additional living arrangements comments: The patient lives in [facility] with her . Additional occupation/educati
[2021-02-19 18:57] LABS: Troponin I 0.038 ng/mL (0.000-0.034)
[2021-02-19 20:51] LABS: Troponin I 0.034 ng/mL (0.000-0.034)
--- NOTE | 2021-02-19 22:27 | PC.NURSE ---
Report received at 2028 by KANG Dunlap with the ED department. Patient to go to IMU room 231.
--- NOTE | 2021-02-19 22:30 | ADMGEN ---
This patient, Margot Gipson, was admitted to IMU Room 231-01 at 2230 from the ED. Patient/family oriented to hospital policies and general routines including ID bracelet, bed and alarms, visiting hours, pain management, procedures, bathroom and other care routines, personal items, smoking policy, room service/diet, and visiting hours. Information on how to activate the Rapid Response Team has been discussed. Patient/Family are encouraged to report perceived risks to care and to ask questions if they do not understand what they are told or what they should do.
[2021-02-20] VITALS (15 sets, daily range): BP systolic 124–148; BP diastolic 45–73; PULSE 44–68; RESP 18–24; TEMP 36.5–36.9; O2SAT 96–99
--- NOTE | 2021-02-20 01:06 | ECHO_ITS ---
Patient Info Name: Margot Gipson Age: 75 years : 1945 Gender: Female Ht: 70 in Wt: 162 lbs BSA: 1.91 m2 HR: 49 bpm BP: 144 / 45 mmHg Heart Rhythm: Sinus Rhythm, Bradycardia Technical Quality: Good Exam Date: 02/20/2021 9:03 AM Exam Location: [facility] Pulmonary Patient Status: Outpatient Admit Date: 02/19/2021 Staff Ordering Physician: Ita Mckenzie PA-C Computer Art Instructor: REVA Attending Provider: Sarahy Thornton MD Referring Physician: Magaly ANG; Exam Type: CA echo doppler color flow Study Info Indications I51.7 - Cardiomegaly I27.0 - Primary pulmonary hypertension R07.9 - Chest pain, unspecified Complete two-dimensional, color flow and Doppler transthoracic echocardiogram is performed. Summary 1. Complete two-dimensional, color flow and Doppler transthoracic echocardiogram is performed. 2. Left ventricular systolic function is lower limits of normal, estimated at 50-55% with mild hypokinesis of mid anterolateral wall. 3. The left ventricular diastolic function is normal. 4. Left atrial chamber dimension is moderately enlarged. 5. There is moderate aortic valve regurgitation. 6. There is mild mitral valve regurgitation. Left Ventricle Left ventricular chamber dimension is normal. Left ventricular systolic function is lower limits of normal, estimated at 50-55% with mild hypokinesis of mid anterolateral wall. There is no increased left ventricular wall thickness. The left ventricular diastolic function is normal. Global longitudinal strain is mildly elevated at -16 %. Right Ventricle Right ventricular chamber dimension is normal. Right ventricular systolic function is normal. Left Atria Left atrial chamber dimension is moderately enlarged. Right Atria Right atrial chamber dimension is mildly enlarged. Aortic Valve The aortic valve is trileaflet. There is mild aortic valve sclerosis. There is no aortic valve stenosis. There is moderate aortic valve regurgitation. Pulmonic Valve The pulmonic valve is not well visualized. There is trace pulmonic regurgitation. Mitral Valve The mitral valve has thickened leaflets. There is mild mitral valve regurgitation. The mitral valve annulus is mildly calcified. Tricuspid Valve The tricuspid valve leaflets are normal. There is trace tricuspid valve regurgitation. No pulmonary hypertension, estimated pulmonary arterial systolic pressure is 26 mmHg. Pericardium/Pleural The pericardium appears normal. There is no pericardial effusion. Inferior Vena Cava Normal inferior vena cava with >50% collapse upon inspiration consistent with normal right atrial pressure, 5 mmHg. Aorta The aortic root size at the sinus of Valsalva is normal. The prox ascending aorta size is normal. Left Ventricular Outflow Tract Name Value Normal LVOT 2D LVOT Diameter 2.0 cm LVOT Doppler LVOT Peak Gradient 5 mmHg LVOT Mean Gradient 2 mmHg LVOT VTI 26 cm LVOT VTI/AV VTI Ratio 0.8 LVOT Stroke Volume
[2021-02-20] MEDS: LEVOTHYROXINE SODIUM 100 MCG TABLET PO (05:47)
[2021-02-20 07:13] LABS: Alanine Aminotransferase 12 U/L (4-35); Alkaline Phosphatase 66 U/L (38-126); Aspartate Amino Transferase 29 U/L (14-36); Bilirubin,Total 2.2 mg/dL (0.2-1.3); Cholesterol 201 mg/dL (0-200); HDL Direct 56 mg/dL; Magnesium 2.2 mg/dL (1.6-2.3); Triglycerides 137 mg/dL (<150)
[2021-02-20 07:24] LABS: LDL Cholesterol Direct 101 mg/dL
[2021-02-20] MEDS: ASPIRIN 81 MG CHEWABLE TABLET PO (07:45)
[2021-02-20] MEDS: PARoxetine 20 MG TABLET PO (07:45)
[2021-02-20] MEDS: FERROUS GLUCONATE 324 MG TABLET PO (07:45)
[2021-02-20] MEDS: PANTOPRAZOLE 40 MG TABLET PO (07:45)
--- NOTE | 2021-02-20 08:22 | PM.CNCAR ---
Assessment and Plan Assessment and plan (1) Chest pain: Code(s): R07.9 - Chest pain, unspecified <ARLINE Maya - Last Filed: 02/20/21 10:24> Status: Acute <ARLINE Maya - Last Filed: 02/20/21 10:24> Assessment and Plan: 2-3 week history of epigastric/substernal chest discomfort. Occurring both at rest and with exertion with some associated arm numbness. No known history of CAD but has risk factors of advanced age, smoking history. Mild, flat troponin elevation. Abnormal EKG with ST depression in V4, V5 that are slightly worse than previous EKG. Will plan for lexiscan stress test today. Echo pending <ARLINE Maya - Last Filed: 02/20/21 10:24> (2) Elevated troponin: Code(s): R77.8 - Other specified abnormalities of plasma proteins <ARLINE Maya - Last Filed: 02/20/21 10:24> Status: Acute <ARLINE Maya - Last Filed: 02/20/21 10:24> Assessment and Plan: Mild, flat troponin elevation. Lexican stress test ordered to evaluate for presence of coronary artery disease. <ARLINE Maya - Last Filed: 02/20/21 10:24> (3) Cardiomegaly: Code(s): I51.7 - Cardiomegaly <ARLINE Maya - Last Filed: 02/20/21 10:24> Status: Acute <ARLINE Maya - Last Filed: 02/20/21 10:24> Assessment and Plan: Noted on CT and CXR. Echo cardiogram pending <ARLINE Maya - Last Filed: 02/20/21 10:24> Additional Plan Attending Addendum: Date of service 02/20/2021 I have personally seen and examined the patient at bedside. I agree with the above documentation and plan of care as outlined. Patient is a very pleasant 75 year female with history of hypothyroidism, hypertension and known hiatal hernia who presented with 2-3 weeks progressive mid epigastric and lower chest fullness/heaviness with in station of something getting stuck in her esophagus. This would occur at random and also with activity on occasion. Symptoms progressed associated with some fatigue and belching. She noted some positional component worse at night lying on her side occasionally with associated left arm numbness. Patient denied associated shortness of breath. Occasional episodes of sweating also randomly occurring not necessarily with chest pain. No prior known history of CAD. Initial troponin minimally elevated 0.036 fairly flat curve. Twelve lead EKG revealed subtle ST abnormality suggestive of ischemia compared to prior tracings in January 2020. Patient has no complaints right now and states she feels very well. CT angiogram of the chest revealed cardiomegaly, moderate hiatal hernia no acute cardiopulmonary findings however ascending aorta 4.1 cm unchanged, no dissection, mild to moderate coronary arterial calcification and arterial sclerosis. Exam: Very pleasant female appearing younger than her stated age A and O x3, NAD, breathing comfortably speaking full sentences sitting upright in bed well-developed, cooperative. No carotid bruits Cardiac exam sinus bradycardia no S3-S4, normal S1-S2, soft early systolic murmur Abdomen soft, mild reproducible tenderness upper epigastrium lower xiphoid process without palpable masses or abnormality positive bowel sounds throughout no rebound guarding or rigidity noted abdominal aorta nonpalpable no appreciable bruits No edema clubbing or cyanosis on extremities. Extremities warm well perfused no cyanosis Skin warm and dry without ecchymoses rashes or petechiae Neurologic cranial nerves 2-12 grossly intact examination grossly nonfocal Psychiatric mood calm and appropriate Musculoskeletal muscle strength and tone intact Impression: Somewhat atypical but concerning progressive chest and upper epigastric pain possible anginal equivalent with minimal flat troponin elevation with subtle EKG changes concerning for myocardial ischemia. Hypertension Coronary
--- NOTE | 2021-02-20 09:43 | EST_ITS ---
Patient Info Name: Margot Gipson Age: 75 years : 1945 Gender: Female Ht: 70 in Wt: 166 lbs BSA: 1.93 m2 HR: 57 bpm BP: 104 / 72 mmHg Heart Rhythm: Sinus Rhythm Exam Date: 02/20/2021 2:19 PM Exam Location: [facility] Stress Patient Status: Inpatient Admit Date: 02/19/2021 Staff Ordering Physician: Karla Rodriguez Attending Provider: Sarahy Thornton MD Exercise Technologist: Mari Ivan CT Exercise Physician: Gregory Ramirez MD Exam Type: CA stress faustino w NM Study Info A regadenoson stress test was performed. Summary 1. No abnormal ST/T deviation meeting strict criteria for reversible myocardial ischemia with Lexiscan. 2. No arrhythmias were observed during the examination. 3. Transient chest pain resolved spontaneously after Lexiscan administration. 4. Please correlate with nuclear medicine images, reported separately. Protocol: Lexiscan Stress ECG Details Stage: REST Duration (min): 3 min : 33 sec HR (bpm): 61 SBP (mmHg): 104 DBP (mmHg): 72 Stage: REST Duration (min): 31 min : 46 sec HR (bpm): 62 SBP (mmHg): 104 DBP (mmHg): 72 Stage: STAGE 1 Duration (min): 0 min : 59 sec HR (bpm): 69 SBP (mmHg): 104 DBP (mmHg): 72 Stage: RECOVERY Duration (min): 1 min : 0 sec HR (bpm): 93 SBP (mmHg): 104 DBP (mmHg): 72 Stage: RECOVERY Duration (min): 2 min : 0 sec HR (bpm): 93 SBP (mmHg): 129 DBP (mmHg): 76 Stage: RECOVERY Duration (min): 3 min : 0 sec HR (bpm): 89 SBP (mmHg): 129 DBP (mmHg): 78 Stage: RECOVERY Duration (min): 4 min : 0 sec HR (bpm): 87 SBP (mmHg): 129 DBP (mmHg): 78 Stage: RECOVERY Duration (min): 4 min : 51 sec HR (bpm): 91 SBP (mmHg): 124 DBP (mmHg): 79 Rest HR: 62 bpm Peak HR: 96 bpm Rest Sys BP: 104 mmHg Peak Sys BP: 129 mmHg Max Pred HR: 145 bpm % Max Pred HR: 66 % Target HR: 123 bpm Max RPP: 12,384 bpm*mmHg BP Response: Normal blood pressure response Termination Reason: Completed protocol Cardiac Symptoms: Chest pain Total Time: 1 min : 0 sec Rest Hearn BP: 72 mmHg Peak Hearn BP: 78 mmHg Total Dose: 0.4 mg Resting ECG Normal sinus rhythm. ST abnormality consider ischemia anterolateral leads, PVCs. Stress ECG No abnormal ST/T deviation meeting strict criteria for reversible myocardial ischemia with Lexiscan. Arrhythmias No arrhythmias were observed during the examination. Report Signatures
--- NOTE | 2021-02-20 18:54 | PM.IMPN ---
Progress Note: A&P Assessment and Plan (1) Chest pain: Code(s): R07.9 - Chest pain, unspecified Status: Acute (2) Elevated troponin: Code(s): R77.8 - Other specified abnormalities of plasma proteins Status: Acute (3) Abnormal EKG: Code(s): R94.31 - Abnormal electrocardiogram [ECG] [EKG] Status: Acute (4) Cardiomegaly: Code(s): I51.7 - Cardiomegaly Status: Acute (5) Hypertension: Code(s): I10 - Essential (primary) hypertension Status: Acute (6) Hypothyroidism: Code(s): E03.9 - Hypothyroidism, unspecified Status: Acute (7) Pernicious anemia: Code(s): D51.0 - Vitamin B12 deficiency anemia due to intrinsic factor deficiency Status: Acute Additional Plan The patient presents today for evaluation of intermittent midsternal chest tightness/pressure that has been occurring with exertion and on occasion at rest. Given increasing fatigue over the past couple of months, cardiomegaly, and abnormal EKG she may very well have underlying heart disease thus she is being admitted for closer monitoring and Cardiology consultation. Echocardiogram has been ordered for a.m. Continue pantoprazole which was recently started given evidence of hiatal hernia. Her blood pressures were reviewed and they have been running mostly in the 140s to 150s systolic thus there is room for improvement. She is probably a bit anxious thus will continue to monitor these closely overnight. She has been running bradycardic but was asymptomatic with that. Continue levothyroxine and check TSH. Hemoglobin and hematocrit are within normal limits; continue ferrous gluconate. She takes a vitamin B12 injection once a month. 02/20/21 reversible defect on imaging indicative of ischemia cardiology on board pt to Cath tomorrow overall doing ok cont current care Subjective Date/time seen: 02/20/21 18:54 pt doing ok aware of results from radiology portion of stress test, pending cath in am no complaints at time of my visit Exam Narrative: General: NAD AAOx3 HEENT: Wearing glasses. EOMI. Sclerae anicteric. Oral mucosa moist. Oropharynx clear. Neck: Supple. No JVD. Respiratory: Lungs are clear to auscultation bilaterally. Cardiovascular: Sinus bradycardia. Gastrointestinal: Abdomen is soft, nontender, and nondistended with positive bowel sounds. Skin: Warm and dry. No rash or lesions on limited exam. Extremities: No cyanosis or clubbing. Neurological: Alert. Cranial nerves 2-12 are grossly intact. No gross focal deficits to casual conversation. Psychiatric: Pleasant and cooperative with normal mood and affect. Judgment and insight intact. Objective Data Vital Signs Vital Signs: Vital Signs - 24 hr 02/19/21 19:01 02/19/21 19:31 02/19/21 19:46 Temperature Pulse Rate 46 L 51 L 46 L Respiratory Rate 22 H 21 H 20 Blood Pressure 113/101 H 145/69 H 155/76 H Pulse Oximetry 98 99 100 02/19/21 20:01 02/19/21 20:22 02/19/21 20:46 Temperature Pulse Rate 52 L 52 L 55 L Respiratory Rate 21 H 16 18 Blood Pressure 142/79 H 142/79 H 157/76 H Pulse Oximetry 99 98 99 02/19/21 21:01 02/19/21 21:31 02/19/21 21:46 Temperature Pulse Rate 50 L 54 L 50 L Respiratory Rate 18 17 18 Blood Pressure 159/83 H 143/66 H 146/68 H Pulse Oximetry 98 98 98 02/19/21 22:01 02/19/21 22:30 02/19/21 23:58 Temperature 97.2 F L 97.8 F Pulse Rate 53 L 51 L 55 L Respiratory Rate 16 20 20 Blood Pressure 144/68 H 159/65 H 150/95 H Pulse Oximetry 98 98 99 02/20/21 00:00 02/20/21 02:00 02/20/21 04:00 Temperature 98.3 F Pulse Rate 46 L 46 L 47 L Respiratory Rate 20 Blood Pressure 144/45 H Pulse Oximetry 96 02/20/21 06:00 02/20/21 08:00 02/20/21 10:00 Temperature 97.7 F Pulse Rate 45 L 47 L 54 L Respiratory Rate 24 H Blood Pressure 148/53 H Pulse Oximetry 99 02/20/21 12:00 02/20/21 14:00 02/20/21 16:00 Temperature 98.1 F 98.2 F Pulse Rate 54 L 49 L
[2021-02-20] MEDS: atenoloL 25 MG TABLET PO (20:48)
[2021-02-21] VITALS (36 sets, daily range): BP systolic 93–153; BP diastolic 48–81; PULSE 45–64; RESP 14–21; TEMP 35.9–36.8; O2SAT 93–100
[2021-02-21] MEDS: LEVOTHYROXINE SODIUM 100 MCG TABLET PO (06:06)
[2021-02-21] MEDS: ASPIRIN 81 MG CHEWABLE TABLET PO (09:00)
[2021-02-21] MEDS: PARoxetine 20 MG TABLET PO (09:00)
[2021-02-21] MEDS: PANTOPRAZOLE 40 MG TABLET PO (09:01)
[2021-02-21] MEDS: FERROUS GLUCONATE 324 MG TABLET PO (09:01)
--- NOTE | 2021-02-21 09:33 | PM.IMPN ---
Progress Note: A&P Assessment and Plan (1) Chest pain: Code(s): R07.9 - Chest pain, unspecified Status: Acute (2) Elevated troponin: Code(s): R77.8 - Other specified abnormalities of plasma proteins Status: Acute (3) Abnormal EKG: Code(s): R94.31 - Abnormal electrocardiogram [ECG] [EKG] Status: Acute (4) Cardiomegaly: Code(s): I51.7 - Cardiomegaly Status: Acute (5) Hypertension: Code(s): I10 - Essential (primary) hypertension Status: Acute (6) Hypothyroidism: Code(s): E03.9 - Hypothyroidism, unspecified Status: Acute (7) Pernicious anemia: Code(s): D51.0 - Vitamin B12 deficiency anemia due to intrinsic factor deficiency Status: Acute Additional Plan The patient presents today for evaluation of intermittent midsternal chest tightness/pressure that has been occurring with exertion and on occasion at rest. Given increasing fatigue over the past couple of months, cardiomegaly, and abnormal EKG she may very well have underlying heart disease thus she is being admitted for closer monitoring and Cardiology consultation. Echocardiogram has been ordered for a.m. Continue pantoprazole which was recently started given evidence of hiatal hernia. Her blood pressures were reviewed and they have been running mostly in the 140s to 150s systolic thus there is room for improvement. She is probably a bit anxious thus will continue to monitor these closely overnight. She has been running bradycardic but was asymptomatic with that. Continue levothyroxine and check TSH. Hemoglobin and hematocrit are within normal limits; continue ferrous gluconate. She takes a vitamin B12 injection once a month. 02/20/21 reversible defect on imaging indicative of ischemia cardiology on board pt to Cath tomorrow overall doing ok cont current care 02/21/21 s/p PCI to RCA cont current care DAPT one yr anticipate dc tomorrow on regimen per cardiology Subjective Date/time seen: 02/21/21 09:33 Patient seen status post cardiac catheterization doing well without complaints Exam Narrative: General: NAD AAOx3 HEENT: Wearing glasses. EOMI. Sclerae anicteric. Oral mucosa moist. Oropharynx clear. Neck: Supple. No JVD. Respiratory: Lungs are clear to auscultation bilaterally. Cardiovascular: S1S2 RRR Gastrointestinal: Abdomen is soft, nontender, and nondistended with positive bowel sounds. Skin: Warm and dry. No rash or lesions on limited exam. R groin soft no ecchymosis noted Extremities: No cyanosis or clubbing. Neurological: Alert. Cranial nerves 2-12 are grossly intact. No gross focal deficits to casual conversation. Psychiatric: Pleasant and cooperative with normal mood and affect. Judgment and insight intact. Objective Data Vital Signs Vital Signs: Vital Signs - 24 hr 02/20/21 10:00 02/20/21 12:00 02/20/21 14:00 Temperature 98.1 F Pulse Rate 54 L 54 L 49 L Respiratory Rate 20 Blood Pressure 137/64 Pulse Oximetry 98 02/20/21 16:00 02/20/21 18:00 02/20/21 19:56 Temperature 98.2 F 97.7 F Pulse Rate 56 L 68 62 Respiratory Rate 20 20 Blood Pressure 146/71 H 134/45 L Pulse Oximetry 99 98 02/20/21 20:00 02/20/21 20:48 02/20/21 22:00 Temperature Pulse Rate 52 L 57 L 52 L Respiratory Rate Blood Pressure Pulse Oximetry 02/20/21 23:04 02/21/21 00:00 02/21/21 02:00 Temperature 98.4 F Pulse Rate 45 L 48 L 50 L Respiratory Rate 18 Blood Pressure 124/73 Pulse Oximetry 99 02/21/21 03:27 02/21/21 04:00 02/21/21 06:00 Temperature 98.2 F Pulse Rate 53 L 45 L 47 L Respiratory Rate 20 Blood Pressure 126/64 Pulse Oximetry 93 02/21/21 08:00 Temperature 98.2 F Pulse Rate 64 Respiratory Rate 18 Blood Pressure 135/65 Pulse Oximetry 94 Intake/Output Intake/Output: Intake & Output 02/18/21 02/19/21 02/20/21 02/21/21 23:59 23:59 23:59 23:59 Intake Total 300 350 Output Total 2125 450
--- NOTE | 2021-02-21 10:05 | WPDMODSED ---
Moderate Sedation Note-Pt Data Patient Data Diagnosis: Intermittent chest discomfort largely atypical of angina abnormal ECG abnormal Lexiscan stress test Present Complaint: this is a 75-year-old woman without previous known coronary disease is reporting intermittent chest pain of recent onset. A Lexiscan nuclear stress test done yesterday is interpreted as showing inferior ischemia. Twelve lead ECG demonstrates precordial ST and T abnormalities Procedure to be performed/Plan: left heart catheterization Allergies Allergy/AdvReac Type Severity Reaction Status Date / Time codeine AdvReac Unknown ALTERED Verified 10/16/20 09:31 MENTAL STATE Home Medications Medication Instructions Recorded Confirmed Type atenolol 25 mg PO HS 02/01/20 02/19/21 History cyanocobalamin (vitamin B-12) 1,000 mcg SUBCUT MONTHLY 02/01/20 02/19/21 History ferrous gluconate 324 mg PO DAILY 02/01/20 02/19/21 History levothyroxine 100 mcg PO QA 02/01/20 02/19/21 History paroxetine HCl 20 mg PO DAILY 02/01/20 02/19/21 History Current Medications: Active Medications Aspirin (Aspirin 81 Mg Chewable Tablet) 81 mg PO DAILY@0800 [facility] Last Admin: 02/21/21 09:00 Dose: 81 mg Documented by: Atenolol (Atenolol 25 Mg Tablet) 25 mg PO [facility] Last Admin: 02/20/21 20:48 Dose: 25 mg Documented by: Cyanocobalamin (Cyanocobalamin Inj 1,000 Mcg/Ml Vial) 1,000 mcg SUB-Q MONTHLY [facility] Ferrous Gluconate (Ferrous Gluconate 324 Mg Tablet) 324 mg PO DAILY@0800 [facility] Last Admin: 02/21/21 09:01 Dose: 324 mg Documented by: Levothyroxine Sodium (Levothyroxine Sodium 100 Mcg Tablet) 100 mcg PO DAILY@0630 [facility] Last Admin: 02/21/21 06:06 Dose: 100 mcg Documented by: Nitroglycerin (Nitroglycerin Sl 0.4 Mg Tablet) 0.4 mg SUBLINGUAL Q5MIN PRN PRN Reason: Chest Pain Ondansetron HCl (Ondansetron Inj 4 Mg/2 Ml Vial) 4 mg IV PUSH Q4H PRN PRN Reason: Nausea Pantoprazole Sodium (Pantoprazole 40 Mg Tablet) [facility] Admin: 09/24/21 09:01 Dose: 40 mg Documented by: Paroxetine HCl (Paroxetine 20 Mg Tablet) 20 mg PO DAILY TIFF Last Admin: 02/21/21 09:00 Dose: 20 mg Documented by: Sedation/Anesthesia: No previous sedation/anesthesia problems (including family history). [facility] Past Medical History Medical History Atrial flutter Poorly documented. Depression Hiatal hernia Hypertension Hypothyroidism Pernicious anemia Transient ischemic attack Surgical History Surgical History History of breast biopsy History of cataract extraction History of hysterectomy for benign disease History of laparoscopic appendectomy (02/02/20) Family History Family History Mother Sepsis Father Hepatocellular carcinoma Sibling Coronary artery disease Social History Social History Social History: Surrogate decision maker: Daniel Gipson, spouse. Code status: Full code. Smoking packs per day: 2.5 Smoking cigarettes per day: 50.0 Years smoked: 49 Smoking pack-years: 122.50 Smoking status: Former smoker Tobacco type: cigarettes Second hand tobacco smoke exposure: No Alcohol intake: never Substance use: never Substance use type: does not use Additional living arrangements comments: The patient lives in [facility] with her . Additional occupation/education comments: Retired beautician. Mod Sed Physical Exam Physical Exam Pre Procedural Exam: Normal: Appearance, Neck, Throat, Airway, Lungs, Heart Size, Heart Rate, Heart Rhythm and Extremities Hours since solid foods: 12 Hours since liquid intake: 12 Mallampati Classification: class II Internal Medicine - PN: Obj Da Vital Signs Vital Signs: Vital Signs - 24 hr 02/20/21 12:00 02/20/21 14:00 02/20/21 16:00 Temperature 36.7 C 3
--- NOTE | 2021-02-21 10:53 | ECG_ITS ---
Measurements Intervals [place] Rate: 41 P: 64 [place]: 217 QRS: 35 QRSD: 89 T: 82 QT: 450 QTc: 372 Interpretive Statements SINUS BRADYCARDIA WITH FIRST DEGREE AV BLOCK INCOMPLETE RIGHT BUNDLE BRANCH BLOCK ST-T WAVE ABNORMALITY IN ANTERIOR LEADS- CONSIDER ISCHEMIA BASELINE ARTIFACT- II, III, AVL ABNORMAL ECG Electronically Signed On 02-21-2021 15:04:52 CDT by Jeff Zelaya D.O.
--- NOTE | 2021-02-21 10:57 | WPDCARDPROC ---
Cardiac Cath Procedure Note Date of procedure:: 02/21/21 Performing physician:: Robles Barreto MD Indication:: intermittent chest pain, abnormal stress test Brief clinical history:: this is a 75-year-old woman without previous history of coronary disease who has been experiencing intermittent chest pain for several weeks. She presented to the hospital with this and had a nuclear stress test done yesterday demonstrating evidence of inferior ischemia. In this setting an angiogram has been recommended Procedure Procedure performed:: coronary angiography left ventriculography PCI(NICHOLE) to the proximal RCA Sedation/Medication given:: fentanyl 50 mg Versed 2 mg case start time 10:18 a.m. case end time 10:50 a.m. sedation provided by Marce Tyson RN, trained observer Access site:: right femoral artery Estimated blood loss:: 15 cc Procedure note:: patient was brought to the cardiac catheterization lab in the postabsorptive state right femoral triangle was prepared and draped in the usual fashion. Anesthesia was provided with 1% lidocaine infiltrated locally. Using the modified Seldinger technique a 5 [place] sheath was placed into the right femoral artery after this left heart catheterization was carried out. I used a 5 [place] angled pigtail catheter to document left-sided hemodynamics and to inject LV g in the PALM projection. After this I used a standard 5 [place] FL4 catheter to engage and inject the left coronary artery and then a 5 [place] JR4 catheter to engage and inject the right coronary artery. Following this the cineangiograms were reviewed and PCI of the proximal right coronary artery was recommended and carried out as detailed below. Prior to PCI the 5 [place] sheath was changed out over a guidewire for a 6 [place] the patient was systemically anticoagulated with bolus and infusion of Angiomax and she received aspirin and 600 mg of clopidogrel orally. Following PCI the catheters were removed the sheath was sutured into position the patient was taken to the holding area for recovery and sheath removal. Findings:: Hemodynamics: Central aortic pressure was 124 over 56 left ventricle 124/0 end-diastolic 10 there is no gradient on pullback across the aortic valve. Left ventricle: The LV is normal in size all segments contract appropriately the global ejection fraction is 50-55% by visual estimation left main coronary artery is nicely patent the left anterior descending is a medium caliber artery that is mildly calcified proximally. There is about 50% stenosis in the mid LAD near a takeoff of the 2nd diagonal branch. There was RICH[place]D 3 flow in the vessel this does not appear to be flow-limiting. The circumflex is a medium caliber artery giving rise to the marginal branches the circumflex marginal branches are free of significant disease the right coronary artery is medium in caliber and is dominant to the posterior circulation there is a 95% stenosis in the proximal RCA that is relatively discrete. The RPDA does receive some [id number] collateral filling. The distal right coronary the PDA and the posterolateral branches are not significantly disease. Intervention: The right coronary artery was engaged with a 6 [place] JR4 catheter with side holes. The right coronary is wired using a standard 0.014 BMW coronary guidewire. The lesion was pre-dilated using a 2.5 x 20 mm emerge balloon at 8 atmospheres and then stented using a 3 x 22 mm Invrepiro sirolimus eluting stent at 10 atmospheres deployed with excellent angiographic result no residual stenosis dissection or distal embolization. Conclusion:: 1. Right coronary dominant circulation high-grade 95% stenosis in the proximal RCA resulting in the patient's clinical presentation and nuclear stress test abnormal findings. 2. Not flow-limiting 50% mid LAD lesion 3. preserved left ventricular systolic function 4. successful treatment of right coronary stenosi
--- NOTE | 2021-02-21 11:02 | PC.NURSE ---
Patient left floor to Saw Handle Assembler for Cardiac Catheterization Procedure at 1000 on 02/21/2021
[2021-02-21] MEDS: SODIUM CHLORIDE 0.9% IV 1,000 ML 125 ML IV CONT (13:45)
--- NOTE | 2021-02-21 14:00 | SUR.PHASEII ---
Lunch ordered for patient and will be sent to room.
[2021-02-21 17:21] LABS: Cholesterol 189 mg/dL (0-200); HDL Direct 55 mg/dL; Triglycerides 163 mg/dL (<150)
[2021-02-21 17:32] LABS: LDL Cholesterol Direct 92 mg/dL
[2021-02-21] MEDS: atenoloL 25 MG TABLET PO (20:59)
[2021-02-22] VITALS (9 sets, daily range): BP systolic 135–140; BP diastolic 69–72; PULSE 51–65; RESP 16–18; TEMP 36.6; O2SAT 95–98
--- NOTE | 2021-02-22 05:11 | ECG_ITS ---
Measurements Intervals [place] Rate: 51 P: 63 HI: 217 QRS: 0 QRSD: 91 T: 10 QT: 446 QTc: 412 Interpretive Statements SINUS BRADYCARDIA WITH FIRST DEGREE AV BLOCK INCOMPLETE RIGHT BUNDLE BRANCH BLOCK ST-T WAVE ABNORMALITY IN ANTERIOR LEADS- CONSIDER ISCHEMIA ABNORMAL ECG Electronically Signed On 02-22-2021 14:14:17 CDT by Jeff Zelaya D.O.
[2021-02-22] MEDS: LEVOTHYROXINE SODIUM 100 MCG TABLET PO (05:54)
[2021-02-22] MEDS: FERROUS GLUCONATE 324 MG TABLET PO (08:31)
[2021-02-22] MEDS: ROSUVASTATIN 10 MG TABLET PO (08:32)
[2021-02-22] MEDS: CLOPIDOGREL BISULFATE 75 MG TABLET PO (08:32)
[2021-02-22] MEDS: ASPIRIN 81 MG CHEWABLE TABLET PO (08:32)
[2021-02-22] MEDS: PARoxetine 20 MG TABLET PO (08:32)
[2021-02-22] MEDS: PANTOPRAZOLE 40 MG TABLET PO (08:32)
--- NOTE | 2021-02-22 08:33 | PM.DS ---
DS: Admitting Diagnosis Discharge Date 02/22/21 Admitting Diagnosis (1) Chest pain: Code(s): R07.9 - Chest pain, unspecified Status: Acute (2) Elevated troponin: Code(s): R77.8 - Other specified abnormalities of plasma proteins Status: Acute (3) Abnormal EKG: Code(s): R94.31 - Abnormal electrocardiogram [ECG] [EKG] Status: Acute (4) Cardiomegaly: Code(s): I51.7 - Cardiomegaly Status: Acute (5) Hiatal hernia: Code(s): K44.9 - Diaphragmatic hernia without obstruction or gangrene Status: Inactive (6) Hypertension: Code(s): I10 - Essential (primary) hypertension Status: Acute (7) Hypothyroidism: Code(s): E03.9 - Hypothyroidism, unspecified Status: Acute (8) Pernicious anemia: Code(s): D51.0 - Vitamin B12 deficiency anemia due to intrinsic factor deficiency DS: Discharge Diagnosis Discharge Diagnosis (1) CAD (coronary artery disease): Code(s): I25.10 - Atherosclerotic heart disease of [place] coronary artery without angina pectoris Status: Acute (2) Cardiomegaly: Code(s): I51.7 - Cardiomegaly Status: Acute (3) Abnormal EKG: Code(s): R94.31 - Abnormal electrocardiogram [ECG] [EKG] Status: Acute (4) Hypothyroidism: Code(s): E03.9 - Hypothyroidism, unspecified Status: Acute (5) Hypertension: Code(s): I10 - Essential (primary) hypertension Status: Acute (6) Chest pain: Code(s): R07.9 - Chest pain, unspecified Status: Acute (7) Elevated troponin: Code(s): R77.8 - Other specified abnormalities of plasma proteins Status: Acute DS: Summary Hospital Course Reason for hospitalization: chest pain r/o ACS Hospital Course: 75-year-old female with ongoing intermittent chest pain admitted to the hospital for rule out ACS. Cardiology was consulted and believed her chest pain to be atypical in presentation however given her ongoing complaints Lexiscan was performed. This study demonstrated reversible areas of ischemia and patient subsequently underwent cardiac catheterization. She is now status post PCI to the RCA. Cardiology recommends to continue dual anti-platelet therapy, beta-romi, statin, p.r.n. nitroglycerin. Patient is discharged home in stable condition with indications to follow up with her primary care physician as well as Cardiology for ongoing care. Time Spent with Patient Time attestation: Total time spent providing and/or coordinating discharge services: Time spent: Greater than 30 minutes Exam Narrative: General: NAD AAOx3 HEENT: EOMI. Sclerae anicteric. Oral mucosa moist. Oropharynx clear. Neck: Supple. No JVD. Respiratory: Symmetric chest rise without any respiratory distress Skin: Warm and dry. No rash or lesions on limited exam. Extremities: No cyanosis or clubbing. Neurological: Alert. Cranial nerves 2-12 are grossly intact. No gross focal deficits to casual conversation. Psychiatric: Pleasant and cooperative with normal mood and affect. Judgment and insight intact. DS: Data Data Completed and Pending Labs on day of discharge: Labs from last 24 hours 02/21/21 17:05 Triglycerides 163 H Cholesterol 189 LDL Cholesterol Direct 92 HDL Direct 55 Discharge Plan Discharge Attending physician on discharge: Vivienne Ledbetter Consulting providers: Gregory Ramirez Discharging Clinician: Vivienne Ledbetter Anticipated Discharge Date/Time: 02/22/21 12:05 Patient Disposition: Home, Self-Care Activity: may shower and no straining Diet: heart healthy Patient Instructions: Antibiotic Form Stand Alone Forms: General Discharge Information Follow-up/Referrals: Seth Jama MD [Primary Care Provider] - Discharge Medications: New clopidogrel 75 mg Tablet 75 mg PO DAILY 90 Days Qty: 90 RF: 0 aspirin [Children's Aspirin] 81 mg Tablet,Chewable 81 mg PO DAILY@0800 9
--- NOTE | 2021-02-22 11:27 | PM.PNCARD ---
Progress Note: A&P Assessment and Plan (1) Chest pain: Code(s): R07.9 - Chest pain, unspecified Status: Acute Assessment and Plan: Atypical. Likely related CAD (2) Elevated troponin: Code(s): R77.8 - Other specified abnormalities of plasma proteins Status: Acute (3) Cardiomegaly: Code(s): I51.7 - Cardiomegaly Status: Acute Assessment and Plan: Noted on CT and CXR. (4) CAD (coronary artery disease): Code(s): I25.10 - Atherosclerotic heart disease of [place] coronary artery without angina pectoris Status: Acute Assessment and Plan: Status post PCI to the RCA. Continue dual anti-platelet therapy, beta-romi, statin, p.r.n. nitroglycerin. Okay for discharge from cardiac perspective with standard groin/catheterization precaution Subjective Date/time seen: 02/22/21 11:27 Interval history: 75-year-old with chest pain Date of service 02/22/2021: Underwent PCI to the RCA yesterday. She feels well. She does have constipation but otherwise no chest pain, shortness of breath and no palpitations. Review of Systems Review of Systems: All systems reviewed & are unremarkable except as noted in HPI and below Constitutional: Constitutional: Reports excessive sweating, Denies fatigue and Denies weakness Eyes: Eyes: Denies change in vision ENT: Reports Normal hearing present and Reports neck pain Cardiovascular: Cardiovascular: Reports chest pain, Reports diaphoresis, Reports pedal edema, Denies dyspnea and Denies dyspnea on exertion Respiratory: Respiratory: Denies dyspnea and Denies dyspnea on exertion Gastrointestinal: Gastrointestinal: Denies melena and Denies hematochezia Genitourinary: Genitourinary: Denies dysuria Musculoskeletal: Musculoskeletal: Reports back pain, Reports neck pain and Reports numbness Neurologic: Reports Normal hearing present, Reports numbness and Denies weakness Psychiatric: Psychiatric: Denies anxiety and Denies depression Endocrine: Endocrine: Reports excessive sweating and Denies fatigue Hematologic/Lymphatic: Hematologic/Lymphatic: Denies easy bleeding and Denies easy bruising Allergic/Immunologic: Allergic/Immunologic: Denies GI upset with certain foods Exam Const: General: comfortable and no acute distress HENMT: Head: normal to inspection Eyes: General: appearance normal, both eyes and all related structures Pupils: Equal, round and reactive pupils present Neck: Neck: supple and no JVD Resp: Auscultation: clear to auscultation bilaterally and diminished lung sounds Cardio: Rate: bradycardic Rhythm: regular rhythm Other: Right groin is free of hematoma ecchymosis or bruit GI: Auscultation: normal bowel sounds Skin: General skin exam: normal color Wounds: no wounds Neuro: Cranial nerves: Yes Equal, round and reactive pupils present and Yes Normal hearing present Cognition (Neuro): normal cognition Speech: normal speech Extrem: General: normal to inspection, no edema and no pedal edema Psych: Mental Status: mental status grossly normal Objective Data Vital Signs Vital Signs: Vital Signs - 24 hr 02/21/21 11:32 02/21/21 11:45 02/21/21 12:02 Temperature Pulse Rate 51 L 47 L 45 L Pulse Rate [Right Pedal (Dorsalis Pedis)] Respiratory Rate 17 17 17 Blood Pressure 135/67 140/67 139/67 Pulse Oximetry 97 98 97 02/21/21 12:15 02/21/21 12:45 02/21/21 13:15 Temperature Pulse Rate 45 L 46 L 52 L Pulse Rate [Right Pedal (Dorsalis Pedis)] 46 L 52 L Respiratory Rate 16 17 16 Blood Pressure 139/67 121/61 132/61 Pulse Oximetry 97 97 96 02/21/21 13:38 02/21/21 13:40 02/21/21 13:45 Temperature Pulse Rate 47 L 47 L 52 L Pulse Rate [Right Pedal (Dorsalis Pedis)] Respiratory Rate 18 19 19 Blood Pressure 121/69 130/67 114/71 Pulse Oximetry 97 98 100 02/21/21 13:50 02/21/21 13:55 02/21/21 14:00 Temperature Pulse Rate 52 L 49 L 58 L Pulse Rate [Right Pedal (Dorsalis P
--- NOTE | 2021-02-22 14:55 | PC.NURSE ---
02/22/21 13:41 Patient discharged to home. Education on new prescriptions was provided as well as discharge instructions. Patient had no questions at this time.
== END 2021-02-22 13:41 | disposition home or self-care (01) | DRG 247 ==
LOC: ANHED 16:25 → ANHIMU 22:18
PROVIDERS: Physician Assistant; Specialist; Admitting Provider Internal Medicine; Emergency Provider General Practice; PCP Internal Medicine; Visit Provider Hospitalist
PROC: 4A023N7 Measurement of Cardiac Sampling and Pressure, Left Heart, Percutaneous Approach (ICD-10-PCS; CPT 93452; principal; 2021-02-21 10:00)
PROC: 027034Z Dilation of Coronary Artery, One Artery with Drug-eluting Intraluminal Device, Percutaneous Approach (ICD-10-PCS; 2021-02-21 10:00)
DX: I25.10 Atherosclerotic heart disease of native coronary artery without angina pectoris (principal); I11.9 Hypertensive heart disease without heart failure; R07.89 Other chest pain; R94.31 Abnormal electrocardiogram [ECG] [EKG]; R77.8 Other specified abnormalities of plasma proteins; I71.2 Thoracic aortic aneurysm, without rupture; K44.9 Diaphragmatic hernia without obstruction or gangrene; E03.9 Hypothyroidism, unspecified; D51.0 Vitamin B12 deficiency anemia due to intrinsic factor deficiency; Z79.899 Other long term (current) drug therapy; Z86.73 Personal history of transient ischemic attack (TIA), and cerebral infarction without residual deficits; Z87.891 Personal history of nicotine dependence
CPT/HCPCS: 36415; 71046; 71275; 78452; 80048; 80061; 80076; 83735; 84443; 84484; 85025; 85380; 85610; 85730; 93005; 93017; 93306; 93458; 99285; A9270; A9502; C1725; C1769; C1874; C1887; C1894; C9600; J0461; J0583; J1644; J2250; J2785; J3010; J7030; J7040; Q9967

== ENCOUNTER 2021-06-25 11:55 | Outpatient (CLI) | payer MEDICARE, SELFPAY ==
--- NOTE | ~2021-06-25 | XR_ITS ---
EXAMINATION: XR shoulder LT min 2V EXAM DATE: 06/25/2021 12:35 INDICATION No known recent injury provided at this time. Pain of the left shoulder. Limited range of motion. TECHNIQUE: The following left shoulder projections obtained: frontal projection with internal rotatio n, frontal projection with external rotation, Grashey, and scapular Y view (4+ views). There is no p rior study for comparison. FINDINGS: No evidence of left shoulder rotator cuff calcific tendinosis. There is mild glenohumera l joint, mild acromioclavicular joint primary osteoarthritis. IMPRESSION: 1. Mild left shoulder osteoarthritis. Reviewed, dictated and finalized at location A. PRINTER
[2021-06-25 12:17] LABS: Basophils Absolute Auto 0.02 K/mm3 (0.00-0.10); Basophils Percent Auto 0.4 % (0.0-1.0); Eosinophils Absolute Auto 0.12 K/mm3 (0.02-0.50); Eosinophils Percent Auto 2.2 % (1.0-6.0); Hematocrit 40.9 % (35.0-42.0); Hemoglobin 13.3 g/dL (11.7-13.8); Immature Granulocyte Absolute 0.01 K/mm3 (0.00-0.00); Immature Granulocyte Percent A 0.2 % (0.0-0.0); Lymphocytes Percent Auto 33.4 % (18.0-42.0); Mean Corpuscular HGB Conc 32.5 g/dL (32.0-36.0); Mean Corpuscular Volume 98.6 fL (78.0-102.0); Mean Platelet Volume 10.3 fl (9.2-11.8); Monocytes Absolute Auto 0.37 K/mm3 (0.10-0.90); Monocytes Percent Auto 6.9 % (2.0-11.0); Neutrophils Absolute Auto 3.1 K/mm3 (1.7-7.2); Neutrophils Percent Auto 56.9 % (50.0-70.0); Platelet Count Result 156 K/mm3 (150-420); Red Blood Count 4.15 M/mm3 (4.20-5.40); Red Cell Distribution Width 12.1 % (11.6-14.4); White Blood Count 5.4 K/mm3 (4.8-10.8)
[2021-06-25 12:19] LABS: Add Urine Microscopic? YES; Appearance Urine Clear (Clear); Bilirubin Urine Negative (Negative); Blood Urine Negative (Negative); Color Urine Light Yellow (Yellow); Glucose Urine UA Negative (Negative); Ketones Urine Negative (Negative); Leukocyte Esterase Ur Trace (Negative); Nitrate Urine Negative (Negative); Protein Urine Negative (Negative); Specific Grav Ur 1.025 (1.010-1.020); Urobilinogen Urine 0.2 mg/dL (0.2-1.0); pH Urine 5.5 (5.0-8.0)
[2021-06-25 12:29] LABS: Bacteria Urine Trace /hpf; RBC Urine None seen /hpf (0-2); Squamous Epithelial Cell Urine Few /hpf (Few); WBC Urine 0-3 /hpf (0-3)
[2021-06-25 13:12] LABS: Alanine Aminotransferase 20 U/L (14-59); Albumin Level 3.9 g/dL (3.4-5.0); Alkaline Phosphatase 64 U/L (46-116); Anion Gap 5 mmol/L (8-16); Aspartate Amino Transferase 16 U/L (15-37); Blood Urea Nitrogen 16 mg/dL (7-18); Calcium 9.5 mg/dL (8.5-10.1); Carbon Dioxide 32 mmol/L (21-32); Chloride 104 mmol/L (98-108); Cholesterol 125 mg/dL (0-200); Estimated Glomerular Filt Rate > 60; Glucose 93 mg/dL (70-99); HDL Direct 59 mg/dL (40-60); LDL Cholesterol Calculated 40 mg/dL (<130); Osmolality Calculated 293 mOsm/kg (285-295); Potassium 4.6 mmol/L (3.5-5.1); Sodium 141 mmol/L (136-145); Thyroid Stimulating Hormone 3.87 uIU/mL (0.36-3.74); Total Protein 7.3 g/dL (6.4-8.2); Triglycerides 131 mg/dL (0-150)
== END 2021-06-25 11:56 | disposition home or self-care (01) ==
LOC: CHSLAB 11:58
PROVIDERS: PCP Internal Medicine; Visit Provider Internal Medicine
DX: I25.10 Atherosclerotic heart disease of native coronary artery without angina pectoris (principal); M25.512 Pain in left shoulder; E03.9 Hypothyroidism, unspecified
CPT/HCPCS: 36415; 73030; 80053; 80061; 81001; 84443; 85025

== ENCOUNTER 2023-03-06 16:03 | Emergency (ER) | payer MEDICARE, SELFPAY ==
--- NOTE | ~2023-03-06 | XR_ITS ---
EXAM: XR wrist RT min 3V, XR forearm RT 2V DATE: 03/06/2023 16:50 (accession [id number]), 03/06/2023 16:49 (accession [id number]) HISTORY: fall, swelling/pain throughout wrist . COMPARISON: None available. FINDINGS: Normal mineralization. Transverse fracture of the distal right radius with 10 degrees post erior angulation. Moderately displaced ulnar styloid fracture. No lytic or blastic lesion. Joint spac es are maintained. No erosion or periosteal change. Soft tissues within normal limits. IMPRESSION: Transverse distal right radial fracture with 10 degrees posterior angulation. Displaced ulnar styloid fracture. Reviewed, dictated and finalized at location K. IMPRESSION: Transverse distal right radial fracture with 10 degrees posterior angulation. Displaced ulnar styloid fracture.
[2023-03-06 16:30] VITALS: BP 104/69; PULSE 65; RESP 10; TEMP 36.8; O2SAT 94
[2023-03-06] MEDS: KETOROLAC 30 MG/ML VIAL (*BKC) IM (16:43)
--- NOTE | 2023-03-06 17:16 | ED.UPPEXIN ---
HPI - Extremity Injury (Upper) General Chief Complaint: Extremity Injury, Upper Stated Complaint: right arm injury Time Seen by Provider: 03/06/23 16:09 Source: patient and family Mode of arrival: ambulatory Limitations: no limitations History of Present Illness HPI narrative: this is a 77-year-old presents with a fall while she was in her garden and trimming bushes and fell on an outstretched hand on the right causing pain and mild deformity with swelling. The patient has a brisk radial pulse on the right with no neurological changes no numbness or tingling in her hand or fingers has reduced range of motion secondary to pain and inflammation. Patient has a history of hyperlipidemia hypothyroidism, otherwise no other injuries up-to-date with her tetanus. complaint: injury to: right and wrist Onset (ago): hour(s) Other Extremity Injury: Right: wrist ( swollen and tender) Related Data Home Medications Medication Instructions Recorded Confirmed atenolol 25 mg tablet 25 mg PO HS 02/01/20 03/06/23 cyanocobalamin (vitamin B-12) 1,000 mcg subcut MONTHLY 02/01/20 03/06/23 1,000 mcg/mL injection solution ferrous gluconate 324 mg (38 mg 324 mg PO DAILY 02/01/20 03/06/23 iron) tablet levothyroxine 100 mcg tablet 100 mcg PO QAM 02/01/20 03/06/23 paroxetine HCl 20 mg tablet 20 mg PO DAILY 02/01/20 03/06/23 Allergies Allergy/AdvReac Type Severity Reaction Status Date / Time codeine AdvReac Unknown ALTERED Verified 10/16/20 09:31 MENTAL STATE Review of Systems Review of Systems: All systems reviewed & are unremarkable except as noted in HPI and below PMFSH Past Medical History Medical History Atrial flutter Poorly documented. Depression Hiatal hernia Hypertension Hypothyroidism Pernicious anemia Transient ischemic attack Surgical History Surgical History History of breast biopsy History of cataract extraction History of hysterectomy for benign disease History of laparoscopic appendectomy (02/02/20) Family History Family History Mother Sepsis Father Hepatocellular carcinoma Sibling Coronary artery disease Social History Social History Social History: Surrogate decision maker: Daniel Gipson, spouse. Code status: Full code. Smoking packs per day: 2.5 Smoking cigarettes per day: 50.0 Years smoked: 49 Smoking pack-years: 122.50 Smoking status: Former smoker Tobacco type: cigarettes Second hand tobacco smoke exposure: No Alcohol intake: never Substance use: never Substance use type: does not use Additional living arrangements comments: The patient lives in [facility] with her . Additional occupation/education comments: Retired beautician. Exam Const: General: healthy appearing and no acute distress Nutritional Appearance: well nourished Orientation/consciousness: patient oriented x3 Limitations: no limitations HENMT: Head: normal to inspection Eyes: Conjunctivae: conjunctivae normal Pupils: Equal, round and reactive pupils present Neck: Neck: normal visual inspection and no lymphadenopathy Chest: Chest palpation & inspection: normal inspection of the chest Resp: Effort & Inspection: normal respiratory effort Auscultation: clear to auscultation bilaterally Back/Spine/Pelvis: Back: no CVA tenderness Skin: General skin exam: normal color Rashes: no rashes Wounds: wounds noted Other: Abrasions over her elbow area but no pain or tenderness Neuro: General: patient oriented x3 Extrem: Other: swelling in the right distal wrist with no neurological changes radial pulses brisk on the right. Psych: Mental Status: mental status grossly normal Course Course Emergency Course: Patient had x-rays performed which
[2023-03-06 17:40] VITALS: BP 130/90; PULSE 80; RESP 20; TEMP 36.6; O2SAT 98
== END 2023-03-06 17:42 | disposition home or self-care (01) ==
PROVIDERS: Emergency Provider Emergency Medicine; PCP Internal Medicine
DX: S52.501A Unspecified fracture of the lower end of right radius, initial encounter for closed fracture (principal); S52.611A Displaced fracture of right ulna styloid process, initial encounter for closed fracture; W18.39XA Other fall on same level, initial encounter; E78.5 Hyperlipidemia, unspecified; E03.9 Hypothyroidism, unspecified; I10 Essential (primary) hypertension; F32.A Depression, unspecified; D51.0 Vitamin B12 deficiency anemia due to intrinsic factor deficiency; Z86.73 Personal history of transient ischemic attack (TIA), and cerebral infarction without residual deficits; Z87.891 Personal history of nicotine dependence; Z79.02 Long term (current) use of antithrombotics/antiplatelets; Z79.82 Long term (current) use of aspirin
CPT/HCPCS: 29125; 73090; 73110; 96372; 99284; A4565; J1885

== ENCOUNTER 2023-05-06 11:00 | Outpatient (CLI) | payer MEDICARE, SELFPAY ==
--- NOTE | ~2023-05-06 | MM_ITS ---
EXAMINATION: MM screening [facility] BI w naomy HISTORY: Screening mammogram TECHNIQUE: Craniocaudal and mediolateral oblique 3-D tomosynthesis images were obtained and synthetic 2-D images were generated. CAD analysis was submitted and interpreted. COMPARISON: 08/08/2020, 08/07/2019, 07/25/2018 BREAST PARENCHYMAL COMPOSITION: The breasts are heterogeneously dense, which may obscure small masses . FINDINGS: RIGHT BREAST: No suspicious mass, calcification, or architectural distortion are identified to sugges t malignancy. There has been no suspicious interval change. LEFT BREAST: There is a mass in the middle third of the outer breast at the 3:00 location, 7 cm from the nipple. IMPRESSION: 1. Left breast mass. 2. Recommend routine screening mammography in one year. BI-RADS Category 0: Incomplete: Needs additional imaging evaluation. Reviewed, dictated and finalized at location A. TIONAL SCHOOL TEACHER
== END 2023-05-06 11:01 | disposition home or self-care (01) ==
LOC: CHSIMG 11:04
PROVIDERS: PCP Internal Medicine; Visit Provider Internal Medicine
DX: Z12.31 Encounter for screening mammogram for malignant neoplasm of breast (principal); R92.8 Other abnormal and inconclusive findings on diagnostic imaging of breast
CPT/HCPCS: 77063; 77067

== ENCOUNTER 2023-05-21 09:21 | Outpatient (CLI) | payer MEDICARE, SELFPAY ==
--- NOTE | ~2023-05-21 | MMUS_ITS ---
EXAMINATION: MM diagnostic eliz LT w naomy, US breast LT limited HISTORY: Follow-up left breast mass TECHNIQUE: Additional 3-D tomosynthesis images of the left breast were performed and synthetic 2-D im ages were generated. CAD analysis was submitted and interpreted. High resolution Limited left breast ultrasound was performed. COMPARISON: 05/06/2023 BREAST PARENCHYMAL COMPOSITION: Breast composed of scattered areas of fibroglandular density FINDINGS: MAMMOGRAPHIC FINDINGS: Review of prior examination demonstrates a focal asymmetry in the upper outer quadrant of the right b reast. Additional spot compression and mediolateral views of the right breast are recommended. There is persistent irregular shaped mass in the mid outer aspect of the left breast, middle third. There i s a second mass in the upper central left breast anteriorly. ULTRASOUND: Limited left breast ultrasound: At 1:00, 5 cm from the nipple there is an oval slightly lobulated hyp oechoic 11 mm mass without posterior features or internal vascularity. At 3:00, 6 cm from the nipple, there is an irregular shaped hypoechoic 1.5 cm mass. These findings correspond to the areas of mammo graphic concern. IMPRESSION: 1. Abnormal masses of the left breast with sonographic correlates which are suspicious for malignancy . Ultrasound-guided biopsy of each of these masses recommended. BI-RADS Category 4. 2. Recommend additional spot compression views and ultrasound of the focal right breast asymmetry in the upper outer quadrant seen on prior screening mammogram. BI-RADS Category 0. Reviewed, dictated and finalized at location A. SOR CONSULTANT IMPRESSION: 1. Abnormal masses of the left breast with sonographic correlates which are ly picious for malignancy. Ultrasound-guided biopsy of each of these masses recomm ended. BI-RADS Category 4. 2. Recommend additional spot compression views and ultrasound of the focal righ t breast asymmetry in the upper outer quadrant seen on prior screening mammogra m. BI-RADS Category 0.
== END 2023-05-21 09:22 | disposition home or self-care (01) ==
LOC: CHSIMG 09:23
PROVIDERS: PCP Internal Medicine; Visit Provider Internal Medicine
DX: R92.8 Other abnormal and inconclusive findings on diagnostic imaging of breast (principal)
CPT/HCPCS: 76642; 77061; 77065; G0279

== ENCOUNTER 2023-05-28 09:06 | Outpatient (CLI) | payer MEDICARE, SELFPAY ==
--- NOTE | ~2023-05-28 | MMUS_ITS ---
EXAMINATION: MM diagnostic eliz RT w naomy, US breast RT complete HISTORY: Left breast mass TECHNIQUE: Full field ML and spot MLO and CC 3-D tomosynthesis images of the right breast were perfor med and synthetic 2-D images were generated. CAD analysis was submitted and interpreted. High resolut ion complete right breast ultrasound examination including all 4 quadrants and subareolar area was pe rformed. COMPARISON: 05/06/2023, 08/08/2020, 08/17/2019 bilateral screening screening mammogram examinations jj ateral screening mammogram BREAST PARENCHYMAL COMPOSITION: There are scattered areas of fibroglandular density. FINDINGS: MAMMOGRAPHIC FINDINGS: There is an approximately 6 mm irregular opacity with some indeterminate grouped .granular appearing microcalcifications in the posterior outer mid right breast. ULTRASOUND: No suspicious mass or shadowing, cyst or other significant sonographic abnormality is detected. IMPRESSION: 1. Focal asymmetric irregular soft tissue density with indeterminate granular grouped microcalcificat ions in the posterior outer mid right breast 2. . Recommend stereotactic biopsy of these indeterminate grouped microcalcifications in the posterio r outer mid right breast BI-RADS category 4, suspicious findings. Dr. Anne telephoned the report and stereotactic biopsy recommendation on 05/28/[address] Weaver. Reviewed, dictated and finalized at location A. TY PERSON IMPRESSION: 1. Focal asymmetric irregular soft tissue density with indeterminate granular g rouped microcalcifications in the posterior outer mid right breast 2. . Recommend stereotactic biopsy of these indeterminate grouped microcalcific ations in the posterior outer mid right breast BI-RADS category 4, suspicious findings. Dr. Anne telephoned the report and stereotactic biopsy recommendation on [address] Weaver.
== END 2023-05-28 09:07 | disposition home or self-care (01) ==
LOC: CHSIMG 09:08
PROVIDERS: PCP Internal Medicine; Visit Provider Internal Medicine
DX: R92.8 Other abnormal and inconclusive findings on diagnostic imaging of breast (principal)
CPT/HCPCS: 76641; 77061; 77065; G0279

== ENCOUNTER 2023-05-28 12:55 | Outpatient (RCR) | payer MEDICARE, SELFPAY ==
--- NOTE | 2023-06-07 11:14 | BUOTOPEVAL ---
Assessment and note entered by Fabi Jackson, OT Evaluation Information Assessment Status Evaluation Diagnosis Colles fracture of right radius, inital encounter for closed fracture Onset February 2023 Subjective Information The patient reports pain at 4/10 at best and 10/10 at worst. The patient reports burning sensation in ulnar portion of wrist but no numbness or tingling. She stated that it can get very uncomfortable at night. The aptient reports that her arm goes to sleep sometimes and that it can be uncomfortable but does not happen often. Reported Pain Level Pain Score 8: Self Report Pain Score 4: Self Report Assessment OT Clinical Summary The patient is a 77 year old female who was referred to outpatient OT due to distal radius fracture following a fall. The patient previously demonstrated WNL AROM of R wrist, brown sourer strength, no pain, and no edema where the patient was able to perform ADLs independently. The patient now demonstrates moderately impaired brown sourer strength, decline in wrist AROM, 4 to 10/10 pain and minimal edema that affects the patient's ability to perform ADLs without discomfort. The patient scored a 68.2% on QuickDASH questionnaire at the time of evaluation demonstrating in moderate dysfunction of R UE use. The patient requires skilled OT to address these deficits and return to PLOF. Plan of Care Interventions Therapeutic Exercise,Manual Therapy,Neuro Re- education,Therapeutic Activities,Hot Pack/Cold Pack,Electrical Stimulation,Sensory Integrative Techn,Self-Care/Home Management,Prosthetic Training,Check Out for Orthotic/Pr,Ultrasound OT Services Indicated Yes Treatment Frequency and 2x/week for 10 visits. Duration These treatments will address the objective and functional deficits as defined above. The patient will be advanced safely and appropriately in order for the patient to progress towards his/her prior level of function. Additional exercises will be introduced and as well as a comprehensive home exercise program upon discharge, if needed, ?to ensure carryover of functional gains achieved in the clinic. This treatment plan has been reviewed and agreement upon by the patient.
== END 2023-06-24 09:48 | disposition home or self-care (01) ==
LOC: CHSOT 12:55
PROVIDERS: Visit Provider Orthopaedic Surgery
DX: S52.531D Colles' fracture of right radius, subsequent encounter for closed fracture with routine healing (principal)
CPT/HCPCS: 97110; 97140; 97165

== ENCOUNTER 2023-06-07 10:13 | Outpatient (CLI) | payer MEDICARE, SELFPAY ==
--- NOTE | ~2023-06-07 | MMUS_ITS ---
EXAMINATION: US breast biopsy LT w image, MM post biopsy invasive LT DATE: 06/07/2023 11:48 (accession [id number]), 06/07/2023 11:28 (accession [id number]) INDICATION: Patient presents for biopsy of masses at the 3:00 and 1:00 locations of the left breast. Ultrasound-guided core biopsy is requested to evaluate for malignancy. TECHNIQUE AND FINDINGS: The mass recently described at the 1:00 location appears mammographically stable, consistent with a b enign finding. Biopsy of the mass at the 3:00 location, 6 cm from the nipple was performed. The risks and potential benefits of the procedure were discussed with the patient including bleeding and infec tion. A time out was performed. The skin of the left breast was prepared and draped in usual sterile fashion. 1% lidocaine was used for superficial anesthesia. 1% lidocaine with epinephrine was used for deep anesthesia. A vacuum-assisted biopsy needle was advanced through to the outer edge of the region of interest from a lateral approach utilizing sonographic guidance. A total of five tissue core samples were obtained through the lesion. A tissue marker clip was then placed at the biopsy site. Hemostasis was achieved . A sterile bandage was applied. The patient tolerated procedure well and there was no evidence of immediate complication. The patient was given verbal instructions to return to the Emergency Department in the event of severe breast pa in or rapid breast enlargement. A two view left breast mammogram was obtained to document tissue edi er clip placement. IMPRESSION: 1. Successful ultrasound-guided vacuum-assisted biopsy of left breast mass with tissue marker placeme nt. Reviewed, dictated and finalized at location A. ACCOUNTANT IMPRESSION: 1. Successful ultrasound-guided vacuum-assisted biopsy of left breast mass with tissue marker placement.
== END 2023-06-07 10:14 | disposition home or self-care (01) ==
LOC: ANHIMG 10:16
PROVIDERS: PCP Internal Medicine; Visit Provider Internal Medicine
DX: D05.12 Intraductal carcinoma in situ of left breast (principal)
CPT/HCPCS: 19083; 88305; 88342; A4648

== ENCOUNTER 2023-10-12 11:21 | Emergency (ER) | payer MEDICARE, SELFPAY ==
--- NOTE | ~2023-10-12 | XR_ITS ---
EXAMINATION: XR femur RT min 2V DATE: 10/12/2023 12:07 INDICATION: Right thigh pain. Fall. TECHNIQUE: 2 views of right femur on 4 radiographs were obtained. COMPARISON: None. FINDINGS: There is a comminuted fracture involving right superior pubic ramus and right parasymphysea l pubis. Osteitis pubis is noted. There is mild right hip osteoarthritis. There is mild right knee os teoarthritis. No knee joint effusion. IMPRESSION: 1. Comminuted fracture involving right superior pubic ramus and right parasymphyseal pubis. 2. Polyarticular osteoarthritis. Reviewed, dictated and finalized at location A. IMPRESSION: 1. Comminuted fracture involving right superior pubic ramus and right parasymph yseal pubis. 2. Polyarticular osteoarthritis.
--- NOTE | ~2023-10-12 | XR_ITS ---
EXAMINATION: XR hip RT 2V w AP pelvis DATE: 10/12/2023 12:07 INDICATION: Pubic pain. Fall. TECHNIQUE: An anteroposterior view the pelvis and 2 views of right hip were obtained. COMPARISON: None. FINDINGS: There is a comminuted fracture involving right superior pubic ramus and right parasymphysea l pubis. Osteitis pubis is noted. There is mild osteoarthritis of the hips. There is severe lumbar sp ondylosis. IMPRESSION: 1. Comminuted fracture involving right superior pubic ramus and right parasymphyseal pubis. 2. Mild osteoarthritis of the hips. Reviewed, dictated and finalized at location A. IMPRESSION: 1. Comminuted fracture involving right superior pubic ramus and right parasymph yseal pubis. 2. Mild osteoarthritis of the hips.
[2023-10-12 11:21] VITALS: BP 129/75; PULSE 55; RESP 18; TEMP 36.6; O2SAT 95
--- NOTE | 2023-10-12 11:40 | ED.LOWEXIN ---
HPI - Extremity Injury (Lower) General Chief Complaint: Extremity Injury, Lower Stated Complaint: FALL/RT HIP PAIN Time Seen by Provider: 10/12/23 11:37 Source: patient and family Mode of arrival: ambulatory History of Present Illness HPI Narrative: 77 YEARS OLD WHITE FEMALE CAME TO THE ED COMPLAINING OF RIGHT THIGH PAIN LATERALLY AFTER A FALL 9 DAYS AGO. PATIENT WAS BENDING OVER, LOST BALANCE AND FELL ON THE GROUND. SHE DENIES HEAD INJURY OR LOSS OF CONSCIOUSNESS. PATIENT ON ASPIRIN AND PLAVIX. PATIENT'S SYMPTOMS ARE NOT IMPROVING, WORSE WITH MOVEMENT AND STANDING AND WALKING. SHE DENIES ANY FEVER, CHILLS, NAUSEA, VOMITING, SHORTNESS OF BREATH, CHEST PAIN OR BACK PAIN OR HEADACHE. HISTORY OF LEFT BREAST CANCER SCHEDULE FOR MASTECTOMY NEXT MONTH. STARTED ON HORMONAL THERAPY 1 WEEK AGO. PATIENT DOES NOT KNOW THE STAGE OF THE BREAST CANCER LINE HISTORY OF HYPERLIPIDEMIA, HYPOTHYROIDISM, SINCE CORONARY STENT, TIA AND ATRIAL FIBRILLATION Related Data Home Medications Medication Instructions Recorded Confirmed atenolol 25 mg tablet 25 mg PO HS 02/01/20 10/12/23 cyanocobalamin (vitamin B-12) 1,000 mcg subcut MONTHLY 02/01/20 10/12/23 1,000 mcg/mL injection solution levothyroxine 100 mcg tablet 100 mcg PO QAM 02/01/20 10/12/23 calcium carbonate 600 mg PO DAILY 03/11/23 10/12/23 cholecalciferol (vitamin D3) 25 25 mcg PO DAILY 03/11/23 10/12/23 mcg (1,000 unit) capsule multivitamin 1 tablet PO DAILY 03/11/23 10/12/23 pantoprazole 40 mg tablet,delayed 40 mg PO QAM 03/11/23 10/12/23 release anastrozole 1 mg tablet 1 mg PO DAILY 10/12/23 10/12/23 apixaban 5 mg tablet (Eliquis) 5 mg PO BID 10/12/23 10/12/23 aspirin 325 mg tablet 325 mg PO DAILY 10/12/23 10/12/23 paroxetine HCl 20 mg tablet 20 mg PO DAILY 10/12/23 10/12/23 Allergies Allergy/AdvReac Type Severity Reaction Status Date / Time codeine AdvReac Unknown ALTERED Verified 10/12/23 11:23 MENTAL STATE Review of Systems Review of Systems: All systems reviewed & are unremarkable except as noted in HPI and below PMFSH Past Medical History Medical History Atrial flutter Poorly documented. Breast cancer Depression Hiatal hernia Hypertension Hypothyroidism Pernicious anemia Transient ischemic attack Surgical History Surgical History History of breast biopsy History of cataract extraction History of hysterectomy for benign disease History of laparoscopic appendectomy (02/02/20) Family History Family History Mother Sepsis Father Hepatocellular carcinoma Sibling Coronary artery disease Social History Social History Social History: Surrogate decision maker: Daniel Brandan, spouse. Code status: Full code. Smoking packs per day: 2.5 Smoking cigarettes per day: 50.0 Years smoked: 49 Smoking pack-years: 122.50 Smoking status: Former smoker Tobacco type: cigarettes Second hand tobacco smoke exposure: No Additional smoking assessment comments: Quit 10+ years ago Alcohol intake: never Substance use: never Substance use type: does not use Do You Feel Safe in your Home?: Yes Lack of Transportation: No Lack of Food: Never True Current Housing: I Do Not Have Housing Concerned About Future Housing: No Difficulty Paying Gas/Electric Bills: No Difficulty Paying for Meds: No Currently Unemployed: No Education: Trade/Vocational Certificate Difficulty w/ Childcare or Family Care: No Living arrangements: with family Additional living arrangements comments: The patient lives in [facility] [place] with her . Occupation/Education: retired Additional occupation/education comments: Retired beautician. Exam Narrative: GENERAL APPEARANCE: WELL-DEVELOPED, WELL-NOURISHED SKIN: NORMAL COLOR HEAD: NORM
--- NOTE | 2023-10-12 11:53 | PC.NURSE ---
pt in radiology at this time.
[2023-10-12 12:40] VITALS: BP 117/56; PULSE 55; RESP 18; O2SAT 95
== END 2023-10-12 12:40 | disposition home or self-care (01) ==
PROVIDERS: Emergency Provider Emergency Medicine; PCP Internal Medicine
DX: S32.591A Other specified fracture of right pubis, initial encounter for closed fracture (principal); S70.11XA Contusion of right thigh, initial encounter; W01.0XXA Fall on same level from slipping, tripping and stumbling without subsequent striking against object, initial encounter; C50.912 Malignant neoplasm of unspecified site of left female breast; E78.5 Hyperlipidemia, unspecified; E03.9 Hypothyroidism, unspecified; I48.91 Unspecified atrial fibrillation; F32.A Depression, unspecified; Z95.5 Presence of coronary angioplasty implant and graft; Z86.73 Personal history of transient ischemic attack (TIA), and cerebral infarction without residual deficits; Z87.891 Personal history of nicotine dependence; Z79.82 Long term (current) use of aspirin; Z79.01 Long term (current) use of anticoagulants
CPT/HCPCS: 73502; 73552; 99284

== ENCOUNTER 2024-01-04 08:50 | Outpatient (CLI) | payer MEDICARE, SELFPAY ==
--- NOTE | ~2024-01-04 | CT_ITS ---
Clinical Indication: Breast cancer CT Scan of the Chest, Abdomen, and Pelvis with Contrast: Technique: Contiguous sections were acquired throughout the chest, abdomen, and pelvis after intraven ous administration of 100 cc of Omnipaque 350. Dose reduction technique was used on this scan by uti lizing automated exposure control and iterative reconstruction technique. The dose-length product (DL P) was 846.10 mGy-cm. COMPARISON: 02/17/2021 Findings: There is no evidence of any significant mediastinal, hilar or axillary lymphadenopathy. The mediastin al soft tissues and vascular structures appear normal. Status post left mastectomy with tissue expand er in place. There is no evidence of pleural or pericardial effusion. Stable biapical scarring. No suspicious pulmonary nodule evident. The liver, spleen, gallbladder, adrenals and kidneys are within normal limits. There is a 1.8 x 1.3 c m cystic-appearing mass at the uncinate process of the pancreas (axial image 138). There are atherosc lerotic calcifications of the aorta. No lymphadenopathy. No bowel obstruction or bowel wall thickening. There is no evidence to suggest acute appendicitis.. S mall to moderate hiatal hernia present. Small fat-containing umbilical hernia present. Urinary bladder is unremarkable. No pelvic mass seen. No ascites. There are subacute healing fracture s of the right superior and inferior pubic rami. Impression: No evidence of metastatic disease. Postoperative changes at the left breast, as detailed above. 1.8 x 1.3 cm cystic lesion at the uncinate process of the pancreas. This is most compatible with a lo w malignant potential lesion, such as simple cysts, IPMN, or small serous or mucinous cystadenoma. Co nsider follow-up evaluation with MR as indicated. Alternatively, consider one-year follow-up imaging to assess for stability. [id number] hiatal hernia. Subacute healing fractures of the right superior and inferior pubic rami. Stable biapical pulmonary scarring since 2020. Reviewed, dictated and finalized at location . Impression: No evidence of metastatic disease. Postoperative changes at the left breast, as detailed above. 1.8 x 1.3 cm cystic lesion at the uncinate process of the pancreas. This is mos t compatible with a low malignant potential lesion, such as simple cysts, IPMN, or small serous or mucinous cystadenoma. Consider follow-up evaluation with MR as indicated. Alternatively, consider one-year follow-up imaging to assess for stability. [id number] hiatal hernia. Subacute healing fractures of the right superior and inferior pubic rami. Stable biapical pulmonary scarring since 2020.
== END 2024-01-04 08:51 ==
LOC: CHSIMG 08:54
PROVIDERS: PCP Internal Medicine; Visit Provider Internal Medicine Medical Oncology
DX: C50.912 Malignant neoplasm of unspecified site of left female breast (principal); Z98.890 Other specified postprocedural states; K44.9 Diaphragmatic hernia without obstruction or gangrene; R91.8 Other nonspecific abnormal finding of lung field; S32.591D Other specified fracture of right pubis, subsequent encounter for fracture with routine healing
CPT/HCPCS: 71260; 74177; Q9967

== ENCOUNTER 2024-01-10 08:48 | Outpatient (CLI) | payer MEDICARE, SELFPAY ==
--- NOTE | ~2024-01-10 | NM_ITS ---
EXAMINATION: NM bone scan whole body DATE: 01/10/2024 13:06 INDICATION: Left breast invasive ductal carcinoma TECHNIQUE: 26.2 mCi Tc-99m HDP was administered intravenously. Delayed whole-body scintigrams were o btained. COMPARISON: CT chest, abdomen and pelvis dated 01/24/2024 and right wrist radiographs dated 05/18/2023 FINDINGS: There is increased uptake at the right inferior pubic ramus and at the bilateral pubic bodies the lat ter partially obscured by activity in the bladder. There is also increased uptake at the right wrist. These regions corresponds to healing fractures on the prior radiograph and CT .. Likely degenerative joint centered uptake at the bilateral shoulders and at the interphalangeal joints at the left foot and right hand. Additional likely degenerative uptake in the spine with corresponding severe spondylo sis with degenerative endplate changes at and C6-C7, T8-T9 and T9-T10, and on the left at L3-L4. Ther e is also increased uptake associated with severe facet osteoarthritis on the left at C7-T1. There is also symmetric mild costochondral uptake at the bilateral anterior first ribs. There is also mild up take at the bilateral calcaneal posterior tuberosity likely enthesopathic in etiology. No other suspi cious foci of abnormal bone uptake to suggest metastatic disease. IMPRESSION: 1. Scattered foci of degenerative and posttraumatic uptake as detailed above. No lesion suspicious fo r metastatic disease. Reviewed, dictated and finalized at location A. IMPRESSION: 1. Scattered foci of degenerative and posttraumatic uptake as detailed above. N o lesion suspicious for metastatic disease.
== END 2024-01-10 08:49 | disposition home or self-care (01) ==
LOC: CHSIMG 08:50
PROVIDERS: PCP Internal Medicine; Visit Provider Internal Medicine Medical Oncology
DX: C50.912 Malignant neoplasm of unspecified site of left female breast (principal)
CPT/HCPCS: 78306; A9561

== ENCOUNTER 2024-06-08 09:51 | Outpatient (CLI) | payer MEDICARE, SELFPAY ==
--- NOTE | ~2024-06-08 | MR_ITS ---
EXAMINATION: MR brain/brain stem wo con DATE: 06/08/2024 11:17 INDICATION: Syncope with collapse. Memory loss. TECHNIQUE: Magnetic resonance imaging (MRI) of the brain and brainstem was performed without intraven ous contrast. COMPARISON: Brain MRI 08/01/2014 FINDINGS: There is an old infarct in the left cerebellum. There are scattered areas of nonspecific in creased T2-weighted signal intensity in the cerebral white matter and yanet. There is a small old infa rct in right frontal parietal region. There is no intracranial hemorrhage, acute infarction, or abnor mal intracranial mass lesion. The ventricles are normal in size. The paranasal sinuses are clear. The re are likely changes of ocular lens replacement surgeries. There are trace mastoid effusions. IMPRESSION: 1. 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 2. Moderate nonspecific cerebral white matter disease and pontine disease, which likely represents ch ronic small vessel ischemic disease. Reviewed, dictated and finalized at location A. SMITH APPRENTICE IMPRESSION: 1. 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 2. Moderate nonspecific cerebral white matter disease and pontine disease, whic h likely represents chronic small vessel ischemic disease.
--- NOTE | ~2024-06-08 | US_ITS ---
EXAMINATION: US carotid duplex BI DATE: 06/08/2024 10:22 INDICATION: Memory impairment TECHNIQUE: Grayscale, color Doppler, and pulsed Doppler images of the cervical carotid arteries were obtained. The degree of vessel stenosis is placed in one of the following categories: normal, <50%, 5 0-69%, >=70% but less than near-occlusion, near-occlusion, or total occlusion. Note that percent sten osis relative to normal distal artery lumen diameter is indirectly measured from velocity measurement s as described by Dane, et al. Radiology 2003; 229:340-346. Notes: Normal: Peak systolic velocity <125 centimeters/sec and no plaque <50%. Peak systolic velocity <125 ( EDV <40; ICA/CCA PSV ratio <2.0; used these factors only a tandem lesions or low cardiac output or co ntralateral disease) 50-69 %: PSV 125-230 (EDV 40-100; ratio 2-4) >= 70% but less than near occlusion: PSV greater than 230 (EDV > 100; ratio> 4.0) Near Occlusion: PSV that is variable; markedly narrowed lumen Occlusion: Absent flow on color/spectral Doppler and no lumen on bingham scale. COMPARISON: None. FINDINGS: RIGHT: The right common carotid artery (CCA) peak systolic velocity (PSV) is 81 cm/s. The right internal car otid artery (ICA) PSV is 129 cm/s. The right ICA end-diastolic velocity (EDV) is 30 cm/s. The right I CA/CCA PSV ratio is 1.6. The external carotid artery (ECA) PSV is 51 cm/s. There is antegrade flow in the right vertebral artery. LEFT: The left CCA PSV is 63 cm/s. The left ICA PSV is 87 cm/s. The left ICA EDV is 36 cm/s. The left ICA/C CA PSV ratio is 1.4. The ECA PSV is 54 cm/s. There is antegrade flow in the left vertebral artery. IMPRESSION: 1. 50-69% stenosis in the right internal carotid artery by sonographic criteria. 2. Less than 50% stenosis in the left internal carotid artery by sonographic criteria. Reviewed, dictated and finalized at location B. ENT DESIGNER IMPRESSION: 1. 50-69% stenosis in the right internal carotid artery by sonographic criteria . 2. Less than 50% stenosis in the left internal carotid artery by sonographic cr iteria.
== END 2024-06-08 09:52 | disposition home or self-care (01) ==
LOC: CHSIMG 09:53
PROVIDERS: PCP Internal Medicine; Visit Provider Internal Medicine
DX: R41.3 Other amnesia (principal); I63.9 Cerebral infarction, unspecified; I65.23 Occlusion and stenosis of bilateral carotid arteries; R90.82 White matter disease, unspecified
CPT/HCPCS: 70551; 93880